=== PATIENT | female | born 1940 | race Caucasian/White ===

== ENCOUNTER 2018-07-29 14:43 | Emergency (ER) | payer OTHER ==
[~2018-07-29] VITALS: Ht 154.9 cm; Wt 47.6 kg
== END 2018-07-29 17:54 | disposition home or self-care (01) ==
LOC: ER 14:43
DX: N30.80 Other cystitis without hematuria (principal)

== ENCOUNTER 2024-06-14 21:45 | Emergency (ER) | payer OTHER ==
[~2024-06-14] VITALS: Ht 154.9 cm; Wt 40.8 kg
[2024-06-14] MEDS ORDERED: METFORMIN HCL500 M3 (22:03)
[2024-06-14] MEDS ORDERED: MESTINON60 M1 PO (22:03)
[2024-06-14] MEDS ORDERED: AREDS (22:04)
[2024-06-15] MEDS ORDERED: LEVALBUTEROL HCL 0.63 MG/3 ML SOLUTION IH STA (00:23)
[2024-06-15] MEDS ORDERED: LEVALBUTEROL HCL 0.63 MG/3 ML SOLUTION IH ONE (00:28)
[2024-06-15] MEDS ORDERED: 0.9 % SODIUM CHLORIDE 500 ML IV ONE (00:30)
[2024-06-15 01:47] LABS: CALCIUM 9.9 mg/dL (8.5-10.1); CREATININE SERUM 0.84 mg/dL (0.55-1.02); GFR 64.59; POTASSIUM 3.89 mEq/L (3.5-5.1)
== END 2024-06-15 03:29 ==
LOC: ER 21:46
PROVIDERS: General Practice
DX: R05.8 Other specified cough (principal); E86.0 Dehydration
CPT/HCPCS: 36415; 96365; 96366; 99282; J7042

== ENCOUNTER 2024-06-15 18:48 | Inpatient (IN) | payer OTHER ==
[~2024-06-15] VITALS: Ht 152.4 cm; Wt 44.5 kg
[~2024-06-15 18:48] MED LIST: AREDS; MESTINON60 M1 PO; METFORMIN HCL500 M3
--- NOTE | 2024-06-15 19:11 | NUR ---
PTE ALERTA Y ORIENTADA X3, LLEGA EN AMBULANCIA EN COMPANIA DE PARAMEDICOS, REFIEREN PTE PRESENTA DYSPHAGIA. PTE DEL DR.ORTIZ CORCORAN. SE ANDREI SV Y SE UBICA
[2024-06-15] MEDS ORDERED: ENALAPRILAT DIHYDRATE 1.25 MG/ML VIAL IV ONE (21:45)
[2024-06-15] MEDS ORDERED: SODIUM CHLORIDE 0.45 % 1,000 ML IV SCH (21:45)
[2024-06-15] MEDS ORDERED: LEVALBUTEROL HCL 1.25 MG/3 ML SOLUTION IH SCH (22:51)
[2024-06-15] MEDS ORDERED: DEXTROSE 50 % IN WATER 0.5 G/ML DISP.SYRIN IV PRN (23:00)
[2024-06-15] MEDS ORDERED: 0.9 % SODIUM CHLORIDE 1,000 ML IV SCH (23:00)
[2024-06-15] MEDS ORDERED: ACETAMINOPHEN 500 MG GEL..CAP PO PRN (23:00)
[2024-06-15] MEDS ORDERED: INSULIN LISPRO 1,000 UNIT/10 ML UNITS SUBCUTANEO PRN (23:00)
[2024-06-16] VITALS (9 sets, daily range): BP systolic 99–198; BP diastolic 54–84; O2SAT 97–100
[2024-06-16] MEDS ORDERED: PIPERACILLIN/TAZOBACTAM SODIUM 3.375 GM in DEXTROSE 5 % IN WATER 100 ML IV SCH
[2024-06-16] MEDS ORDERED: NEOSTIGMINE METHYLSULFATE 1 MG/ML IV SCH ×2 (02:00→17:00)
[2024-06-16 03:00] LABS: HEMATOCRIT 38.9 % (36.0-45.00); HEMOGLOBIN 12.9 g/dL (12.0-15.00); MEAN CELL VOLUME 84.3 fL (80.00-100.00); MEAN CORPUSCULAR HGB CONC 33.2 g/dl (32.0-36.0); PLATELET COUNT 172 K/uL (150-450); RED BLOOD COUNT 4.61 M/uL (4.00-6.00); RED CELL DISTRIBUTION WIDTH 13.5 % (11.5-14.5)
[2024-06-16 03:04] LABS: PARTIAL THROMBOPLASTIN TIME 27.4 SECONDS (22.0-34.0); PROTHROMBIN TIME 10.9 SECONDS (9.0-11.5)
[2024-06-16 03:05] LABS: PHOSPHOROUS 3.9 mg/dL (2.5-4.9)
[2024-06-16 03:07] LABS: C-REACTIVE PROTEIN 4.34 MG/DL (0.00-0.29)
[2024-06-16 03:09] LABS: ALBUMIN 3.8 gm/dL (3.4-5.0); BILIRUBIN TOTAL 0.58 mg/dL (0.3-1.2); CALCIUM 9.2 mg/dL (8.5-10.1); CREATININE SERUM 0.77 mg/dL (0.55-1.02); GFR 71.42; GLOBULINA 3.6 G/DL (2.4-3.5); POTASSIUM 3.95 mEq/L (3.5-5.1); TOTAL PROTEIN 7.4 gm/dL (6.4-8.2)
[2024-06-16] MEDS ORDERED: IMMUN GLOB G(IGG)/GLY/IGA OV50 20 G/200 ML VIAL IV SCH (09:00)
[2024-06-16] MEDS ORDERED: FAMOTIDINE/PF 20 MG in 0.9 % SODIUM CHLORIDE 8 ML IV PUSH SCH (09:00)
[2024-06-16 10:39] LABS: PH,URINE 5.5 (5.0-8.0); URINE APPEARANCE Clear; URINE BILIRRUBIN Negative (NEGATIVE); URINE BLOOD Trace; URINE COLOR Yellow; URINE LEUKOCYTE Negative; URINE NITRATE Negative; URINE PROTEIN 30 (NEGATIVE); URINE UROBILINOGEN 0.2 E.U./dl
[2024-06-16 10:56] LABS: URINE BACTERIA 14.6 uL (0.0-1933); URINE CAST 1.61 uL (0.0-1.40); URINE EPITHELIAL CELLS 5.6 uL (0.0-38.8); URINE RBC 3.5 uL (0.0-20.8); URINE WBC 13.5 uL (0.0-23.2)
[2024-06-16 11:20] LABS: URINE GLUCOSE 100 MG/DL (NEGATIVE); URINE KETONE 80 (NEGATIVE)
[2024-06-16] MEDS ORDERED: NITROGLYCERIN IN 5 % DEXTROSE 50 MG/250 ML BOTTLE IV ONE (14:30)
[2024-06-16] MEDS ORDERED: ENALAPRILAT DIHYDRATE 2.5 MG/2 ML VIAL IV PRN (16:45)
[2024-06-16] MEDS ORDERED: PROPOFOL 10,000 MCG/ML VIAL ONE (23:39)
[2024-06-16 23:50] LABS: ABG PO2 185.7 mmHg (80-100); ABG pCO2 50.6 mmHg (35-45); BICARBONATE 23.3 mmol/l (23-25); SaO2 99.4 %; Tco2 24.8 mmol/l
[2024-06-17] VITALS (15 sets, daily range): BP systolic 115–162; BP diastolic 47–78; O2SAT 99–100
[2024-06-17] MEDS ORDERED: NEOSTIGMINE METHYLSULFATE 1 MG/ML IV SCH (01:00)
[2024-06-17 01:15] LABS: ABG PH 7.446 (7.35-7.45); ABG PO2 218.4 mmHg (80-100); ABG pCO2 28.6 mmHg (35-45); BASE EXCESS -3.3 mmol/l; BICARBONATE 19.3 mmol/l (23-25); SaO2 99.8 %; Tco2 20.2 mmol/l
[2024-06-17] MEDS ORDERED: PROPOFOL 100 ML IV SCH (02:00)
[2024-06-17 04:44] LABS: PH,URINE 5.5 (5.0-8.0); URINE APPEARANCE Clear; URINE BILIRRUBIN Negative (NEGATIVE); URINE BLOOD Small; URINE COLOR Yellow; URINE GLUCOSE Negative (NEGATIVE); URINE KETONE 15 (NEGATIVE); URINE LEUKOCYTE Negative; URINE NITRATE Negative
[2024-06-17 04:47] LABS: URINE BACTERIA 30.5 uL (0.0-1933); URINE CAST 5.89 uL (0.0-1.40); URINE EPITHELIAL CELLS 27.5 uL (0.0-38.8); URINE RBC 6.6 uL (0.0-20.8); URINE WBC 11.3 uL (0.0-23.2)
[2024-06-17 05:16] LABS: URINE PROTEIN 100 (NEGATIVE)
[2024-06-17 06:29] LABS: ABG PH 7.396 (7.35-7.45); ABG PO2 313.7 mmHg (80-100); ABG pCO2 31.4 mmHg (35-45); BASE EXCESS -4.8 mmol/l; BICARBONATE 18.8 mmol/l (23-25); SaO2 99.9 %; Tco2 19.8 mmol/l
[2024-06-17 06:57] LABS: allen test SATISFACTORY; mode BPAP; o2 100 %; puncture site RADIAL LEFT
[2024-06-17 07:01] LABS: allen test SATISFACTORY; mode MECHANI VENTILATOR; o2 100 %; puncture site RADIAL LEFT
[2024-06-17 07:02] LABS: allen test SATISFACTORY; mode MECHANI VENTILATOR; o2 80 %; puncture site RADIAL LEFT
[2024-06-17] MEDS ORDERED: CHLORHEXIDINE GLUCONATE 15ML BRUSH KIT MM SCH (09:00)
[2024-06-17] MEDS ORDERED: POLYVINYL ALCOHOL 15 ML DROPS OP SCH ×2 (09:00→13:39)
[2024-06-17] MEDS ORDERED: PYRIDOSTIGMINE BROMIDE 60 MG TABLET PO SCH (14:00)
[2024-06-17 15:01] LABS: ABG PH 7.403 (7.35-7.45); ABG PO2 226.6 mmHg (80-100); ABG pCO2 27.5 mmHg (35-45); BASE EXCESS -6.2 mmol/l; BICARBONATE 16.8 mmol/l (23-25); SaO2 99.8 %; Tco2 17.6 mmol/l
[2024-06-17 15:02] LABS: allen test SATISFACTORY; mode MECHANI VENTILATOR; o2 50 %; puncture site RADIAL LEFT
[2024-06-17] MEDS ORDERED: CARBOXYMETHYLCELL/GLYCERIN/PF 1 EACH DROPERETTE OP SCH (17:00)
[2024-06-18] VITALS (13 sets, daily range): BP systolic 131–177; BP diastolic 50–75; O2SAT 100
[2024-06-18 13:13] LABS: ABG PH 7.405 (7.35-7.45); ABG PO2 197.8 mmHg (80-100); ABG pCO2 29.1 mmHg (35-45); BASE EXCESS -5.4 mmol/l; BICARBONATE 17.8 mmol/l (23-25); SaO2 99.7 %; Tco2 18.7 mmol/l
[2024-06-18 13:14] LABS: allen test SATISFACTORY; mode MECHANI VENTILATOR; o2 40 %; puncture site RADIAL RIGHT
[2024-06-18] MEDS ORDERED: PYRIDOSTIGMINE BROMIDE 60 MG TABLET PO SCH (14:00)
[2024-06-19] VITALS (16 sets, daily range): BP systolic 131–185; BP diastolic 64–85; O2SAT 100
[2024-06-19 06:43] LABS: HEMATOCRIT 32.3 % (36.0-45.00); MEAN CELL VOLUME 82.9 fL (80.00-100.00); MEAN CORPUSCULAR HEMOGLOBIN 28.4 pg (27.00-32.0); MEAN CORPUSCULAR HGB CONC 34.2 g/dl (32.0-36.0); RED BLOOD COUNT 3.89 M/uL (4.00-6.00); RED CELL DISTRIBUTION WIDTH 13.9 % (11.5-14.5)
[2024-06-19 06:48] LABS: PLATELET COUNT 116 K/uL (150-450)
[2024-06-19 07:18] LABS: ALBUMIN 2.2 gm/dL (3.4-5.0); BILIRUBIN TOTAL 0.34 mg/dL (0.3-1.2); CALCIUM 7.8 mg/dL (8.5-10.1); CREATININE SERUM 0.64 mg/dL (0.55-1.02); GFR 88.41; GLOBULINA 4.5 G/DL (2.4-3.5); TOTAL PROTEIN 6.7 gm/dL (6.4-8.2)
[2024-06-19 07:41] LABS: POTASSIUM 2.7 mEq/L (3.5-5.1)
[2024-06-19] MEDS ORDERED: ENALAPRILAT DIHYDRATE 1.25 MG/ML VIAL IV PRN ×2 (08:15→09:05)
[2024-06-19] MEDS ORDERED: IMMUN GLOB G(IGG)/GLY/IGA OV50 20 G/200 ML VIAL IV SCH (09:00)
[2024-06-19] MEDS ORDERED: NITROGLYCERIN IN 5 % DEXTROSE 250 ML IV SCH ×2 (09:30→10:15)
[2024-06-19] MEDS ORDERED: RACEPINEPHRINE HCL 0.5 ML AMPUL IH STA (09:53)
[2024-06-19] MEDS ORDERED: PROPOFOL 10,000 MCG/ML VIAL ONE (10:32)
[2024-06-19] MEDS ORDERED: PROPOFOL 100 ML IV SCH (11:15)
[2024-06-19] MEDS ORDERED: PROPOFOL 10,000 MCG/ML VIAL IV PUSH NR (11:30)
[2024-06-19] MEDS ORDERED: POTASSIUM CHLORIDE IN WATER 40 MEQ/100 ML PIGGYBAG IV SCH (12:00)
[2024-06-19 14:48] LABS: ABG pCO2 33.2 mmHg (35-45)
[2024-06-19 14:49] LABS: ABG PO2 526.5 mmHg (80-100); BASE EXCESS -7.5 mmol/l; BICARBONATE 17.2 mmol/l (23-25); Tco2 18.3 mmol/l; allen test SATISFACTORY; mode MECHANI VENTILATOR; o2 100 %; puncture site RADIAL RIGHT
[2024-06-19 14:50] LABS: ABG PH 7.326 (7.35-7.45); ABG PO2 197.8 mmHg (80-100); ABG pCO2 36.6 mmHg (35-45); BASE EXCESS -6.5 mmol/l; BICARBONATE 18.7 mmol/l (23-25); SaO2 99.6 %; Tco2 19.8 mmol/l
[2024-06-19 14:51] LABS: allen test SATISFACTORY; mode NASAL CANNULA; o2 36 %; puncture site RADIAL LEFT
[2024-06-20] VITALS (15 sets, daily range): BP systolic 109–176; BP diastolic 55–89; O2SAT 100
[2024-06-20] MEDS ORDERED: PYRIDOSTIGMINE BROMIDE 60 MG TABLET PO SCH (02:00)
[2024-06-20] MEDS ORDERED: LOSARTAN POTASSIUM 50 MG TABLET PO STA (07:45)
[2024-06-20] MEDS ORDERED: ISOSORBIDE MONONITRATE 30 MG TABLET PO SCH (09:00)
[2024-06-20 09:17] LABS: ABG PH 7.396 (7.35-7.45); ABG pCO2 28.3 mmHg (35-45); BASE EXCESS -6.3 mmol/l; Tco2 17.9 mmol/l
[2024-06-20 10:36] LABS: HEMATOCRIT 30.4 % (36.0-45.00); MEAN CELL VOLUME 85.1 fL (80.00-100.00); MEAN CORPUSCULAR HEMOGLOBIN 28.1 pg (27.00-32.0); MEAN CORPUSCULAR HGB CONC 33.1 g/dl (32.0-36.0); RED BLOOD COUNT 3.57 M/uL (4.00-6.00); RED CELL DISTRIBUTION WIDTH 13.8 % (11.5-14.5)
[2024-06-20 10:50] LABS: PLATELET COUNT 119 K/uL (150-450)
[2024-06-20 10:58] LABS: BILIRUBIN TOTAL 0.3 mg/dL (0.3-1.2); CALCIUM 7.9 mg/dL (8.5-10.1); CREATININE SERUM 0.66 mg/dL (0.55-1.02); GFR 85.32; GLOBULINA 4.7 G/DL (2.4-3.5); MAGNESIUM 1.9 mg/dL (1.8-2.4); PHOSPHOROUS 2.1 mg/dL (2.5-4.9); POTASSIUM 3.6 mEq/L (3.5-5.1); TOTAL PROTEIN 6.7 gm/dL (6.4-8.2)
[2024-06-20 11:33] LABS: ABG PO2 509.3 mmHg (80-100); o2 100 %; puncture site RADIAL RIGHT
[2024-06-20 11:34] LABS: allen test SATISFACTORY; mode MECHANI VENTILATOR
[2024-06-21] VITALS (8 sets, daily range): BP systolic 3–154; BP diastolic 66–85; O2SAT 100
[2024-06-21] MEDS ORDERED: LOSARTAN POTASSIUM 50 MG TABLET PO SCH (09:00)
[2024-06-21] MEDS ORDERED: FAMOTIDINE/PF 20 MG/2 ML VIAL ONE (11:46)
[2024-06-21] MEDS ORDERED: LEVALBUTEROL HCL 1.25 MG/3 ML SOLUTION IH SCH (12:00)
[2024-06-21 12:42] LABS: ABG PH 7.352 (7.35-7.45); ABG PO2 268.4 mmHg (80-100); ABG pCO2 38.7 mmHg (35-45); BASE EXCESS -4.1 mmol/l; SaO2 99.8 %; Tco2 22.2 mmol/l
[2024-06-21 12:43] LABS: o2 40 %
[2024-06-21 12:44] LABS: allen test SATISFACTORY; mode MECHANI VENTILATOR; puncture site RADIAL RIGHT
[2024-06-22] VITALS (9 sets, daily range): BP systolic 97–150; BP diastolic 53–93; O2SAT 100
[2024-06-22] MEDS ORDERED: [UNRECOGNIZED DRUG - OTHER] IM NR (09:00)
[2024-06-22] MEDS ORDERED: [UNRECOGNIZED DRUG - OTHER] IM NR (09:00)
[2024-06-22 11:09] LABS: ABG PH 7.352 (7.35-7.45); ABG PO2 126.5 mmHg (80-100); ABG pCO2 37.6 mmHg (35-45); BASE EXCESS -4.6 mmol/l; BICARBONATE 20.4 mmol/l (23-25); SaO2 98.6 %; Tco2 21.6 mmol/l
[2024-06-22 11:37] LABS: allen test SATISFACTORY; mode MECHANI VENTILATOR; puncture site RADIAL RIGHT
[2024-06-22 11:38] LABS: o2 35 %
[2024-06-23 05:47] VITALS: BP 141/60; O2SAT 100
[2024-06-23 07:37] LABS: CALCIUM 7.9 mg/dL (8.5-10.1); CREATININE SERUM 0.47 mg/dL (0.55-1.02); GFR 126.24
[2024-06-23 07:50] VITALS: BP 132/54; O2SAT 100
[2024-06-23 07:56] LABS: BASO % 0.4 % (0.1-1.2); EOS # 0.37 (0.04-0.54); EOS % 6.6 % (0.7-7.0); HEMATOCRIT 29.1 % (34.1-44.9); HEMOGLOBIN 9.9 g/dL (11.2-15.7); LYMPH # 0.42 (1.18-3.74); LYMPH % 7.5 % (19.3-53.1); MONO % 7.1 % (4.7-12.5); NEUT # 4.38 (1.56-6.13); NEUT % 78.2 % (34.0-71.1); PLATELET COUNT 153 K/uL (163-369); RED BLOOD COUNT 3.53 M/uL (3.93-5.22); RED CELL DISTRIBUTION WIDTH 13.6 % (11.6-14.4)
[2024-06-23] MEDS ORDERED: POTASSIUM CHLORIDE IN WATER 40 MEQ/100 ML PIGGYBAG IV SCH (08:00)
[2024-06-23 08:03] LABS: POTASSIUM 2.77 mEq/L (3.5-5.1)
[2024-06-23] MEDS ORDERED: POTASSIUM CHLORIDE 10 MEQ CAPSULE PO NR (09:00)
[2024-06-23 09:14] LABS: ABG PH 7.385 (7.35-7.45); ABG PO2 149.1 mmHg (80-100); ABG pCO2 38.9 mmHg (35-45); BICARBONATE 22.7 mmol/l (23-25); SaO2 99.2 %; Tco2 23.9 mmol/l
[2024-06-23 09:15] LABS: allen test SATISFACTORY; mode MECHANI VENTILATOR; o2 35 %; puncture site RADIAL RIGHT
[2024-06-23 12:00] VITALS: BP 158/82; O2SAT 100
[2024-06-23 14:24] LABS: ABG PH 7.375 (7.35-7.45); ABG PO2 174.1 mmHg (80-100); ABG pCO2 35.5 mmHg (35-45); BASE EXCESS -4.1 mmol/l; BICARBONATE 20.3 mmol/l (23-25); SaO2 99.5 %; Tco2 21.4 mmol/l
[2024-06-23 14:32] LABS: allen test SATISFACTORY; mode MECHANI VENTILATOR; o2 35 %; puncture site RADIAL RIGHT
[2024-06-23 15:24] VITALS: BP 155/87; O2SAT 100
[2024-06-23 20:10] VITALS: BP 153/73; O2SAT 100
[2024-06-23 23:37] VITALS: BP 152/72; O2SAT 100
[2024-06-24 04:00] VITALS: BP 149/61; O2SAT 100
[2024-06-24 07:22] VITALS: BP 147/65; O2SAT 100
[2024-06-24 08:14] LABS: CALCIUM 8.5 mg/dL (8.5-10.1); CREATININE SERUM 0.44 mg/dL (0.55-1.02); GFR 136.23; MAGNESIUM 1.7 mg/dL (1.8-2.4); POTASSIUM 4.22 mEq/L (3.5-5.1)
[2024-06-24] MEDS ORDERED: METOPROLOL SUCCINATE 25 MG TAB.SR.24H PO SCH (09:00)
[2024-06-24 09:08] LABS: ABG PH 7.411 (7.35-7.45); ABG pCO2 37.6 mmHg (35-45); BASE EXCESS -0.9 mmol/l; BICARBONATE 23.4 mmol/l (23-25); Tco2 24.5 mmol/l
[2024-06-24] MEDS ORDERED: MAGNESIUM SULFATE IN WATER 50 ML IV NR (10:00)
[2024-06-24 12:28] VITALS: BP 154/96; O2SAT 100
[2024-06-24 14:45] LABS: ABG PH 7.393 (7.35-7.45); ABG PO2 105.7 mmHg (80-100); ABG pCO2 37.4 mmHg (35-45); BASE EXCESS -2.1 mmol/l; BICARBONATE 22.3 mmol/l (23-25); Tco2 23.5 mmol/l
[2024-06-24 15:00] LABS: o2 35 %
[2024-06-24 15:01] LABS: allen test SATISFACTORY; mode MECHANI VENTILATOR; puncture site RADIAL RIGHT
[2024-06-24 15:02] LABS: allen test SATISFACTORY; mode MECHANI VENTILATOR; o2 35 %; puncture site RADIAL RIGHT
[2024-06-24 15:50] VITALS: BP 127/47; BP 139/59; O2SAT 100
[2024-06-24 20:07] VITALS: BP 153/91; O2SAT 100
[2024-06-24 23:29] VITALS: BP 133/95; O2SAT 100
[2024-06-25 04:00] VITALS: BP 153/71; O2SAT 100
[2024-06-25 07:37] VITALS: BP 158/67; O2SAT 100
[2024-06-25 12:00] VITALS: BP 111/56; O2SAT 97
[2024-06-25 15:38] VITALS: BP 128/54; O2SAT 100
[2024-06-25 20:00] VITALS: BP 130/58; O2SAT 100
[2024-06-25 23:29] VITALS: BP 137/60; O2SAT 98
[2024-06-26 04:00] VITALS: BP 130/57; O2SAT 99
[2024-06-26 07:33] VITALS: BP 128/58; O2SAT 100
[2024-06-26 08:50] LABS: ABG PH 7.383 (7.35-7.45); ABG PO2 80.7 mmHg (80-100); BASE EXCESS 0.2 mmol/l; BICARBONATE 25.6 mmol/l (23-25); SaO2 95.6 %; Tco2 26.9 mmol/l
[2024-06-26] MEDS ORDERED: LOSARTAN POTASSIUM 100 MG TABLET PO SCH (09:00)
[2024-06-26] MEDS ORDERED: METOPROLOL SUCCINATE 50 MG TAB.SR.24H PO SCH (09:00)
[2024-06-26 10:41] LABS: allen test SATISFACTORY; mode MECHANI VENTILATOR; o2 35 %; puncture site RADIAL LEFT
[2024-06-26 12:00] VITALS: BP 137/56; O2SAT 100
[2024-06-26 15:58] VITALS: BP 149/69; O2SAT 100
[2024-06-26 20:00] VITALS: BP 129/82; O2SAT 97
[2024-06-26 23:24] VITALS: BP 139/51; O2SAT 95
[2024-06-27] VITALS (8 sets, daily range): BP systolic 107–194; BP diastolic 41–86; O2SAT 96–100
[2024-06-27 08:50] LABS: ABG PH 7.434 (7.35-7.45); ABG PO2 97.9 mmHg (80-100); ABG pCO2 38.2 mmHg (35-45); SaO2 97.8 %; Tco2 26.2 mmol/l
[2024-06-27 08:59] LABS: allen test NO SATISFACTORY; mode MECHANI VENTILATOR; o2 40 %; puncture site RADIAL RIGHT
[2024-06-27 14:37] LABS: BASO % 0.2 % (0.1-1.2); HEMATOCRIT 32.4 % (34.1-44.9); HEMOGLOBIN 10.6 g/dL (11.2-15.7); LYMPH # 0.53 (1.18-3.74); LYMPH % 4.7 % (19.3-53.1); MONO # 0.78 (0.24-0.82); NEUT # 9.81 (1.56-6.13); NEUT % 87.7 % (34.0-71.1); PLATELET COUNT 306 K/uL (163-369); RED BLOOD COUNT 3.93 M/uL (3.93-5.22); RED CELL DISTRIBUTION WIDTH 12.9 % (11.6-14.4)
[2024-06-27 15:00] LABS: ALBUMIN 1.5 gm/dL (3.4-5.0); BILIRUBIN TOTAL 0.56 mg/dL (0.3-1.2); CALCIUM 8.2 mg/dL (8.5-10.1); CREATININE SERUM 0.41 mg/dL (0.55-1.02); GFR 147.79; GLOBULINA 4.3 G/DL (2.4-3.5); POTASSIUM 3.61 mEq/L (3.5-5.1); TOTAL PROTEIN 5.8 gm/dL (6.4-8.2)
[2024-06-27] MEDS ORDERED: CLEVIDIPINE BUTYRATE 100 ML IV SCH (16:00)
[2024-06-27] MEDS ORDERED: PROPOFOL 100 ML IV SCH (16:15)
[2024-06-28] VITALS (12 sets, daily range): BP systolic 105–158; BP diastolic 44–95; O2SAT 97–100
[2024-06-28 11:36] LABS: ABG PH 7.476 (7.35-7.45)
[2024-06-28 11:37] LABS: ABG pCO2 34.6 mmHg (35-45); BASE EXCESS 1.9 mmol/l; BICARBONATE 24.9 mmol/l (23-25); SaO2 97.2 %
[2024-06-28 11:40] LABS: allen test SATISFACTORY; mode MECHANI VENTILATOR; o2 40 %; puncture site RADIAL RIGHT
[2024-06-29] VITALS (23 sets, daily range): BP systolic 78–153; BP diastolic 38–61; O2SAT 97–100
[2024-06-29] MEDS ORDERED: 0.9 % SODIUM CHLORIDE 1,000 ML IV ONE ×2 (11:00→18:30)
[2024-06-29] MEDS ORDERED: NOREPINEPHRINE BITARTRATE 8 MG in DEXTROSE 5 % IN WATER 250 ML IV SCH (12:15)
[2024-06-29 12:56] LABS: LYMPH # 0.07 (1.18-3.74); LYMPH % 1.2 % (19.3-53.1); MEAN CORPUSCULAR HEMOGLOBIN 27.1 pg (25.6-32.2); MONO # 0.04 (0.24-0.82); MONO % 0.7 % (4.7-12.5); NEUT % 97.8 % (34.0-71.1); PLATELET COUNT 190 K/uL (163-369); RED CELL DISTRIBUTION WIDTH 12.9 % (11.6-14.4)
[2024-06-29 13:03] LABS: HEMATOCRIT 25.3 % (34.1-44.9); HEMOGLOBIN 8.4 g/dL (11.2-15.7)
[2024-06-29 13:51] LABS: ALBUMIN 1.2 gm/dL (3.4-5.0); BILIRUBIN TOTAL 0.71 mg/dL (0.3-1.2); CREATININE SERUM 0.59 mg/dL (0.55-1.02); GFR 97.11; GLOBULINA 3.2 G/DL (2.4-3.5); TOTAL PROTEIN 4.4 gm/dL (6.4-8.2)
[2024-06-29 13:55] LABS: POTASSIUM 2.84 mEq/L (3.5-5.1)
[2024-06-29] MEDS ORDERED: MEROPENEM 500 MG/VIAL VIAL IV SCH (15:15)
[2024-06-29 16:38] LABS: INR 1.08; PARTIAL THROMBOPLASTIN TIME 28.4 SECONDS (22.0-34.0); PROTHROMBIN TIME 11.7 SECONDS (9.0-11.5)
[2024-06-29] MEDS ORDERED: POTASSIUM CHLORIDE IN WATER 40 MEQ/100 ML PIGGYBAG IV SCH (17:00)
[2024-06-30] VITALS (11 sets, daily range): BP systolic 104–157; BP diastolic 45–99; O2SAT 100
[2024-06-30 08:42] LABS: ABG PH 7.417 (7.35-7.45); ABG PO2 313.5 mmHg (80-100); ABG pCO2 42.6 mmHg (35-45); BICARBONATE 26.8 mmol/l (23-25); SaO2 99.9 %; Tco2 28.1 mmol/l
[2024-06-30 08:48] LABS: allen test SATISFACTORY; mode MECHANI VENTILATOR; o2 100 %; puncture site RADIAL LEFT
[2024-07-01] VITALS (11 sets, daily range): BP systolic 111–137; BP diastolic 44–56; O2SAT 100
[2024-07-01 07:26] LABS: CALCIUM 7.6 mg/dL (8.5-10.1); CREATININE SERUM 0.49 mg/dL (0.55-1.02); GFR 120.32; POTASSIUM 3.32 mEq/L (3.5-5.1)
[2024-07-01 07:33] LABS: BASO % 0.2 % (0.1-1.2); EOS # 0.01 (0.04-0.54); EOS % 0.1 % (0.7-7.0); LYMPH # 0.46 (1.18-3.74); LYMPH % 3.4 % (19.3-53.1); MEAN CORPUSCULAR HEMOGLOBIN 27.8 pg (25.6-32.2); MONO # 0.59 (0.24-0.82); MONO % 4.4 % (4.7-12.5); NEUT # 12.15 (1.56-6.13); NEUT % 90.7 % (34.0-71.1); PLATELET COUNT 179 K/uL (163-369); RED BLOOD COUNT 2.99 M/uL (3.93-5.22); RED CELL DISTRIBUTION WIDTH 13.5 % (11.6-14.4)
[2024-07-01 07:54] LABS: HEMOGLOBIN 8.3 g/dL (11.2-15.7)
[2024-07-01 09:22] LABS: ABG PH 7.435 (7.35-7.45); ABG PO2 390.5 mmHg (80-100); ABG pCO2 38.9 mmHg (35-45); BASE EXCESS 1.4 mmol/l; BICARBONATE 25.5 mmol/l (23-25); Tco2 26.7 mmol/l
[2024-07-01 12:44] LABS: allen test SATISFACTORY; mode MECHANI VENTILATOR; o2 100 %; puncture site RADIAL RIGHT
[2024-07-01 12:54] LABS: ABG PH 7.392 (7.35-7.45); ABG PO2 127.9 mmHg (80-100); ABG pCO2 44.2 mmHg (35-45); BICARBONATE 26.3 mmol/l (23-25); SaO2 98.8 %; Tco2 27.7 mmol/l
[2024-07-01 15:09] LABS: allen test SATISFACTORY; mode MECHANI VENTILATOR; o2 40 %; puncture site RADIAL RIGHT
[2024-07-02] VITALS (10 sets, daily range): BP systolic 118–155; BP diastolic 43–96; O2SAT 99–100
[2024-07-02] MEDS ORDERED: FUROsemide 20 MG/2 ML VIAL IV NR (11:00)
[2024-07-02] MEDS ORDERED: POTASSIUM CHLORIDE IN WATER 100 ML IV NR (11:00)
[2024-07-02] MEDS ORDERED: MEROPENEM 500 MG/VIAL VIAL IV ONE ×2 (16:50→23:49)
[2024-07-02] MEDS ORDERED: MEROPENEM 500 MG/VIAL VIAL IV SCH (18:00)
[2024-07-02 19:54] LABS: ABG PH 7.419 (7.35-7.45); ABG PO2 141.2 mmHg (80-100); BASE EXCESS 4.4 mmol/l; BICARBONATE 29.8 mmol/l (23-25); SaO2 99.2 %; Tco2 31.2 mmol/l; allen test SATISFACTORY; mode SPONT; o2 40 %; puncture site RADIAL LEFT
[2024-07-03 04:10] VITALS: BP 124/57; O2SAT 100
[2024-07-03] MEDS ORDERED: MEROPENEM 500 MG/VIAL VIAL IV ONE ×3 (05:21→23:37)
[2024-07-03 07:25] VITALS: BP 121/71; O2SAT 100
[2024-07-03 07:41] LABS: CALCIUM 7.1 mg/dL (8.5-10.1); GFR 274.18; POTASSIUM 3.12 mEq/L (3.5-5.1)
[2024-07-03 07:44] LABS: CREATININE SERUM 0.24 mg/dL (0.55-1.02)
[2024-07-03] MEDS ORDERED: FUROsemide 20 MG/2 ML VIAL IV SCH (09:00)
[2024-07-03 09:48] LABS: ABG PH 7.541 (7.35-7.45); ABG pCO2 33.6 mmHg (35-45)
[2024-07-03 09:49] LABS: ABG PO2 121.6 mmHg (80-100); BASE EXCESS 5.9 mmol/l; BICARBONATE 28.1 mmol/l (23-25); SaO2 99.2 %; Tco2 2932 mmol/l
[2024-07-03 09:50] LABS: allen test SATISFACTORY; mode MECHANI VENTILATOR; o2 40 %; puncture site RADIAL RIGHT
[2024-07-03 12:07] VITALS: BP 164/50; O2SAT 93
[2024-07-03 15:56] VITALS: BP 141/56; O2SAT 100
[2024-07-03 20:00] VITALS: BP 139/55; O2SAT 100
[2024-07-03 23:33] VITALS: BP 129/88; BP 184/84; O2SAT 100
[2024-07-04 04:13] VITALS: BP 159/99; O2SAT 100
[2024-07-04 07:34] VITALS: BP 144/44; O2SAT 100
[2024-07-04 09:16] LABS: ABG PH 7.491 (7.35-7.45); ABG PO2 86.3 mmHg (80-100); ABG pCO2 43.3 mmHg (35-45); BASE EXCESS 8.1 mmol/l; BICARBONATE 32.4 mmol/l (23-25); SaO2 97.5 %; Tco2 33.7 mmol/l
[2024-07-04 09:32] LABS: allen test NO SATISFACTORY; mode MECHANI VENTILATOR; o2 40 %; puncture site RADIAL RIGHT
[2024-07-04] MEDS ORDERED: POTASSIUM CHLORIDE 20MEQ/100ML H2O PB IV NR (11:10)
[2024-07-04] MEDS ORDERED: MEROPENEM 500 MG/VIAL VIAL IV ONE ×2 (11:49→22:47)
[2024-07-04 12:00] VITALS: BP 144/46; O2SAT 100
[2024-07-04 13:15] LABS: ABG PO2 81.5 mmHg (80-100); ABG pCO2 55.1 mmHg (35-45); BASE EXCESS 7.6 mmol/l; BICARBONATE 34.2 mmol/l (23-25); SaO2 96.3 %; Tco2 35.8 mmol/l
[2024-07-04 13:24] LABS: allen test NO SATISFACTORY; mode MECHANI VENTILATOR; o2 40 %; puncture site RADIAL LEFT
[2024-07-04 16:07] VITALS: BP 121/42; O2SAT 100
[2024-07-04 20:00] VITALS: BP 141/55; O2SAT 100
[2024-07-04 23:12] VITALS: BP 149/65; O2SAT 97
[2024-07-05] VITALS (7 sets, daily range): BP systolic 129–151; BP diastolic 42–57; O2SAT 100
[2024-07-05 05:44] LABS: ABG PO2 183.7 mmHg (80-100); ABG pCO2 33.8 mmHg (35-45); BASE EXCESS 8.2 mmol/l; BICARBONATE 30.3 mmol/l (23-25); SaO2 99.8 %; Tco2 31.3 mmol/l
[2024-07-05 06:05] LABS: allen test SATISFACTORY; mode MECHANI VENTILATOR; o2 40 %; puncture site RADIAL RIGHT
[2024-07-05 06:54] LABS: BASO % 0.1 % (0.1-1.2); EOS # 0.07 (0.04-0.54); EOS % 0.9 % (0.7-7.0); LYMPH # 0.78 (1.18-3.74); LYMPH % 9.9 % (19.3-53.1); MEAN CORPUSCULAR HEMOGLOBIN 26.5 pg (25.6-32.2); MONO # 0.63 (0.24-0.82); NEUT # 6.33 (1.56-6.13); NEUT % 80.5 % (34.0-71.1); PLATELET COUNT 243 K/uL (163-369); RED BLOOD COUNT 3.13 M/uL (3.93-5.22); RED CELL DISTRIBUTION WIDTH 12.7 % (11.6-14.4)
[2024-07-05 07:21] LABS: HEMATOCRIT 25.1 % (34.1-44.9); HEMOGLOBIN 8.3 g/dL (11.2-15.7)
[2024-07-05 07:47] LABS: ALBUMIN 1.5 gm/dL (3.4-5.0); BILIRUBIN TOTAL 0.47 mg/dL (0.3-1.2); CALCIUM 7.8 mg/dL (8.5-10.1); CREATININE SERUM 0.35 mg/dL (0.55-1.02); GFR 177.4; GLOBULINA 4.1 G/DL (2.4-3.5); POTASSIUM 3.51 mEq/L (3.5-5.1); TOTAL PROTEIN 5.6 gm/dL (6.4-8.2)
[2024-07-05] MEDS ORDERED: MEROPENEM 500 MG/VIAL VIAL IV ONE ×2 (16:17→22:46)
[2024-07-06 01:30] LABS: BASO % 0.2 % (0.1-1.2); EOS # 0.16 (0.04-0.54); EOS % 1.9 % (0.7-7.0); HEMATOCRIT 33.8 % (34.1-44.9); HEMOGLOBIN 11.3 g/dL (11.2-15.7); LYMPH # 0.72 (1.18-3.74); LYMPH % 8.5 % (19.3-53.1); MEAN CORPUSCULAR HEMOGLOBIN 27.8 pg (25.6-32.2); MONO # 0.57 (0.24-0.82); MONO % 6.7 % (4.7-12.5); NEUT # 6.95 (1.56-6.13); NEUT % 82.2 % (34.0-71.1); PLATELET COUNT 253 K/uL (163-369); RED BLOOD COUNT 4.07 M/uL (3.93-5.22); RED CELL DISTRIBUTION WIDTH 13.2 % (11.6-14.4)
[2024-07-06 04:04] VITALS: BP 99/85; O2SAT 100
[2024-07-06 07:39] VITALS: BP 157/60; O2SAT 100
[2024-07-06 09:42] LABS: ABG PO2 119.8 mmHg (80-100); ABG pCO2 37.6 mmHg (35-45); BASE EXCESS 6.1 mmol/l; BICARBONATE 29.3 mmol/l (23-25); SaO2 99.1 %; Tco2 30.5 mmol/l
[2024-07-06 10:36] LABS: allen test NO SATISFACTORY; mode MECHANI VENTILATOR; o2 40 %; puncture site RADIAL RIGHT
[2024-07-06 12:00] VITALS: BP 163/100; O2SAT 100
[2024-07-06 16:00] VITALS: BP 161/54; O2SAT 100
[2024-07-06] MEDS ORDERED: MEROPENEM 500 MG/VIAL VIAL IV ONE (16:57)
[2024-07-06 21:20] VITALS: BP 146/56; O2SAT 100
[2024-07-07] VITALS (7 sets, daily range): BP systolic 98–148; BP diastolic 45–69; O2SAT 99–100
[2024-07-07 08:29] LABS: ABG PH 7.514 (7.35-7.45); ABG PO2 136.1 mmHg (80-100); ABG pCO2 38.5 mmHg (35-45); BASE EXCESS 6.9 mmol/l; BICARBONATE 30.3 mmol/l (23-25); SaO2 99.4 %; Tco2 31.5 mmol/l
[2024-07-07 09:59] LABS: allen test SATISFACTORY; mode MECHANI VENTILATOR; o2 40 %; puncture site RADIAL RIGHT
[2024-07-07] MEDS ORDERED: MEROPENEM 500 MG/VIAL VIAL IV ONE ×2 (11:10→17:01)
[2024-07-08 04:42] VITALS: BP 126/46; O2SAT 100
[2024-07-08 07:43] VITALS: BP 121/47; O2SAT 68
[2024-07-08] MEDS ORDERED: MEROPENEM 500 MG/VIAL VIAL IV ONE ×2 (08:39→16:23)
[2024-07-08 09:12] LABS: ABG PO2 101.4 mmHg (80-100); ABG pCO2 43.8 mmHg (35-45); BASE EXCESS 7.5 mmol/l; BICARBONATE 31.9 mmol/l (23-25); SaO2 98.4 %; Tco2 33.3 mmol/l
[2024-07-08 09:35] LABS: allen test SATISFACTORY; o2 40 %; puncture site RADIAL LEFT
[2024-07-08 09:36] LABS: mode MECHANI VENTILATOR
[2024-07-08 12:00] VITALS: BP 129/52; O2SAT 100
[2024-07-08 15:36] VITALS: BP 119/46; O2SAT 100
[2024-07-08 20:00] VITALS: BP 128/57; O2SAT 100
[2024-07-08 23:26] VITALS: BP 126/88; O2SAT 96
[2024-07-09 04:31] VITALS: BP 164/58; O2SAT 100
[2024-07-09] MEDS ORDERED: MEROPENEM 500 MG/VIAL VIAL IV ONE ×3 (06:04→15:53)
[2024-07-09 08:43] LABS: BASO % 0.2 % (0.1-1.2); EOS # 0.04 (0.04-0.54); EOS % 0.4 % (0.7-7.0); HEMOGLOBIN 10.6 g/dL (11.2-15.7); LYMPH # 0.73 (1.18-3.74); LYMPH % 6.5 % (19.3-53.1); MEAN CORPUSCULAR HEMOGLOBIN 27.2 pg (25.6-32.2); MONO # 0.45 (0.24-0.82); NEUT # 9.93 (1.56-6.13); NEUT % 88.5 % (34.0-71.1); PLATELET COUNT 298 K/uL (163-369); RED CELL DISTRIBUTION WIDTH 13.1 % (11.6-14.4)
[2024-07-09 09:19] LABS: ALBUMIN 1.9 gm/dL (3.4-5.0); BILIRUBIN TOTAL 0.51 mg/dL (0.3-1.2); CALCIUM 8.2 mg/dL (8.5-10.1); CREATININE SERUM 0.38 mg/dL (0.55-1.02); GFR 161.34; GLOBULINA 4.4 G/DL (2.4-3.5); POTASSIUM 3.54 mEq/L (3.5-5.1); TOTAL PROTEIN 6.3 gm/dL (6.4-8.2)
[2024-07-09 09:54] LABS: ABG PH 7.509 (7.35-7.45); ABG PO2 121.2 mmHg (80-100); ABG pCO2 39.2 mmHg (35-45); BICARBONATE 30.5 mmol/l (23-25); SaO2 99.1 %; Tco2 31.7 mmol/l
[2024-07-09 09:55] LABS: allen test SATISFACTORY; mode MECHANI VENTILATOR; o2 40 %; puncture site RADIAL LEFT
[2024-07-09 11:59] VITALS: BP 119/46; O2SAT 100
[2024-07-09 15:08] VITALS: BP 119/46; O2SAT 100
[2024-07-09 20:09] VITALS: BP 136/64; O2SAT 100
[2024-07-09 23:45] VITALS: BP 136/64; O2SAT 100
[2024-07-10 05:52] VITALS: BP 134/51; O2SAT 100
[2024-07-10] MEDS ORDERED: INSULIN LISPRO 1,000 UNIT/10 ML UNITS SUBCUTANEO PRN ×2 (06:45→08:00)
[2024-07-10 07:30] VITALS: BP 162/63; O2SAT 100
[2024-07-10] MEDS ORDERED: DEXTROSE 50 % IN WATER 0.5 G/ML VIAL IV PRN (08:00)
[2024-07-10 09:09] LABS: ABG PH 7.508 (7.35-7.45); ABG PO2 126.7 mmHg (80-100); ABG pCO2 37.2 mmHg (35-45); BASE EXCESS 5.7 mmol/l; BICARBONATE 28.9 mmol/l (23-25); SaO2 99.2 %; allen test SATISFACTORY; mode MECHANI VENTILATOR; o2 40 %; puncture site RADIAL LEFT
[2024-07-10 13:17] VITALS: BP 141/46; O2SAT 100
[2024-07-10 15:18] VITALS: BP 106/45; O2SAT 100
[2024-07-10 20:00] VITALS: BP 125/47; O2SAT 98
[2024-07-10] MEDS ORDERED: 0.9 % SODIUM CHLORIDE 10 ML VIAL IJ ONE (23:28)
[2024-07-11] VITALS (7 sets, daily range): BP systolic 113–153; BP diastolic 43–82; O2SAT 95–100
[2024-07-11] MEDS ORDERED: PROPOFOL 10,000 MCG/ML VIAL IV PUSH ONE (03:30)
[2024-07-11 07:00] LABS: BASO % 0.2 % (0.1-1.2); EOS # 0.02 (0.04-0.54); EOS % 0.1 % (0.7-7.0); HEMATOCRIT 32.5 % (34.1-44.9); HEMOGLOBIN 10.4 g/dL (11.2-15.7); LYMPH # 0.76 (1.18-3.74); LYMPH % 5.5 % (19.3-53.1); MONO # 0.74 (0.24-0.82); MONO % 5.4 % (4.7-12.5); NEUT % 88.4 % (34.0-71.1); PLATELET COUNT 312 K/uL (163-369); RED BLOOD COUNT 3.85 M/uL (3.93-5.22); RED CELL DISTRIBUTION WIDTH 13.3 % (11.6-14.4)
[2024-07-11 08:06] LABS: ALBUMIN 1.9 gm/dL (3.4-5.0); BILIRUBIN TOTAL 0.43 mg/dL (0.3-1.2); CALCIUM 8.7 mg/dL (8.5-10.1); CREATININE SERUM 0.53 mg/dL (0.55-1.02); GFR 109.9; GLOBULINA 4.6 G/DL (2.4-3.5); POTASSIUM 3.86 mEq/L (3.5-5.1); TOTAL PROTEIN 6.5 gm/dL (6.4-8.2)
[2024-07-11 08:39] LABS: ABG PH 7.448 (7.35-7.45); ABG pCO2 48.5 mmHg (35-45); BASE EXCESS 7.5 mmol/l; BICARBONATE 32.8 mmol/l (23-25); SaO2 96.5 %; Tco2 34.3 mmol/l
[2024-07-11 08:48] LABS: allen test NO SATISFACTORY; mode MECHANI VENTILATOR; o2 40 %; puncture site RADIAL RIGHT
[2024-07-12 04:00] VITALS: BP 149/56; O2SAT 100
[2024-07-12 07:04] VITALS: BP 152/64; O2SAT 100
[2024-07-12 09:01] LABS: ABG PH 7.491 (7.35-7.45); ABG PO2 99.6 mmHg (80-100); ABG pCO2 44.6 mmHg (35-45); BASE EXCESS 8.8 mmol/l; BICARBONATE 33.3 mmol/l (23-25); SaO2 98.4 %; Tco2 34.7 mmol/l
[2024-07-12 10:17] LABS: allen test SATISFACTORY; mode MECHANI VENTILATOR; o2 40 %; puncture site RADIAL RIGHT
[2024-07-12 12:00] VITALS: BP 168/59; O2SAT 100
[2024-07-12] MEDS ORDERED: INSULIN NPH HUMAN ISOPHANE 1,000 UNITS/10 ML UNITS SUBCUTANEO SCH (13:00)
[2024-07-12 15:40] VITALS: BP 137/74; O2SAT 100
[2024-07-12 20:00] VITALS: BP 138/67; O2SAT 100
[2024-07-12 23:35] VITALS: BP 140/58; O2SAT 100
[2024-07-13 04:11] VITALS: BP 142/47; O2SAT 100
[2024-07-13 07:49] VITALS: BP 129/44; O2SAT 100
[2024-07-13 08:42] LABS: ABG PO2 148.3 mmHg (80-100); ABG pCO2 50.2 mmHg (35-45); BASE EXCESS 8.5 mmol/l; BICARBONATE 34.1 mmol/l (23-25); SaO2 99.4 %; Tco2 35.7 mmol/l; o2 40 %
[2024-07-13 08:43] LABS: allen test NO SATISFACTORY; mode MECHANI VENTILATOR; puncture site RADIAL LEFT
[2024-07-13] MEDS ORDERED: FAMOTIDINE/PF 20 MG/2 ML VIAL ONE (09:28)
[2024-07-13 09:37] LABS: BASO % 0.5 % (0.1-1.2); EOS # 0.12 (0.04-0.54); EOS % 2.2 % (0.7-7.0); HEMATOCRIT 33.7 % (34.1-44.9); HEMOGLOBIN 10.6 g/dL (11.2-15.7); LYMPH # 0.82 (1.18-3.74); LYMPH % 14.7 % (19.3-53.1); MEAN CORPUSCULAR HEMOGLOBIN 26.8 pg (25.6-32.2); NEUT % 73.4 % (34.0-71.1); PLATELET COUNT 285 K/uL (163-369); RED BLOOD COUNT 3.96 M/uL (3.93-5.22); RED CELL DISTRIBUTION WIDTH 13.1 % (11.6-14.4)
[2024-07-13 10:08] LABS: CALCIUM 8.8 mg/dL (8.5-10.1); CREATININE SERUM 0.43 mg/dL (0.55-1.02); GFR 139.89; POTASSIUM 3.45 mEq/L (3.5-5.1)
[2024-07-13 12:00] VITALS: O2SAT 100
[2024-07-13 15:38] VITALS: BP 127/50; O2SAT 100
[2024-07-13 20:00] VITALS: BP 127/57; O2SAT 100
[2024-07-13 23:31] VITALS: BP 131/54; O2SAT 100
[2024-07-14 04:08] VITALS: BP 145/67; O2SAT 100
[2024-07-14 07:29] VITALS: BP 125/53; O2SAT 100
[2024-07-14 09:14] LABS: ABG PH 7.459 (7.35-7.45); ABG PO2 160.8 mmHg (80-100); ABG pCO2 46.8 mmHg (35-45); BASE EXCESS 7.5 mmol/l; BICARBONATE 32.5 mmol/l (23-25); SaO2 99.5 %; Tco2 33.9 mmol/l
[2024-07-14 11:41] LABS: allen test SATISFACTORY; mode MECHANI VENTILATOR; o2 40 %; puncture site RADIAL RIGHT
[2024-07-14 12:00] VITALS: BP 137/57; O2SAT 100
[2024-07-14 15:09] VITALS: BP 143/54; O2SAT 100
[2024-07-14 20:00] VITALS: BP 159/66; O2SAT 99
[2024-07-14 23:58] VITALS: BP 162/72; O2SAT 98
[2024-07-15] VITALS (8 sets, daily range): BP systolic 96–153; BP diastolic 49–98; O2SAT 97–100
[2024-07-15 07:33] LABS: CALCIUM 9.1 mg/dL (8.5-10.1); CREATININE SERUM 0.44 mg/dL (0.55-1.02); GFR 136.23; POTASSIUM 3.09 mEq/L (3.5-5.1)
[2024-07-15 07:49] LABS: INR 1.02; PARTIAL THROMBOPLASTIN TIME 27.7 SECONDS (22.0-34.0); PROTHROMBIN TIME 11.1 SECONDS (9.0-11.5)
[2024-07-15 09:18] LABS: ABG PH 7.483 (7.35-7.45); ABG pCO2 43.7 mmHg (35-45); BASE EXCESS 7.7 mmol/l; BICARBONATE 32.1 mmol/l (23-25); SaO2 99.4 %; Tco2 33.4 mmol/l
[2024-07-15 09:49] LABS: BASO % 0.5 % (0.1-1.2); EOS # 0.12 (0.04-0.54); EOS % 1.9 % (0.7-7.0); HEMATOCRIT 33.7 % (34.1-44.9); HEMOGLOBIN 10.8 g/dL (11.2-15.7); LYMPH # 0.66 (1.18-3.74); LYMPH % 10.2 % (19.3-53.1); MEAN CORPUSCULAR HEMOGLOBIN 27.3 pg (25.6-32.2); MONO # 0.52 (0.24-0.82); NEUT # 5.12 (1.56-6.13); NEUT % 79.2 % (34.0-71.1); PLATELET COUNT 313 K/uL (163-369); RED BLOOD COUNT 3.95 M/uL (3.93-5.22)
[2024-07-15 10:14] LABS: allen test SATISFACTORY; mode MECHANI VENTILATOR; o2 40 %; puncture site RADIAL RIGHT
[2024-07-15] MEDS ORDERED: POTASSIUM CHLORIDE/D5-0.45NACL 1,000 ML IV ONE (10:45)
[2024-07-15] MEDS ORDERED: POTASSIUM CHLORIDE IN WATER 40 MEQ/100 ML PIGGYBAG IV NR (10:45)
[2024-07-16 04:28] VITALS: BP 135/49; O2SAT 98
[2024-07-16 07:39] VITALS: BP 156/57; O2SAT 97
[2024-07-16 11:55] LABS: CREATININE SERUM 0.44 mg/dL (0.55-1.02); GFR 136.23; POTASSIUM 3.91 mEq/L (3.5-5.1)
[2024-07-16] MEDS ORDERED: LIDOCAINE HCL 1%/EPINEPHRINE 10 ML VIAL IJ ONE (12:45)
[2024-07-16 13:57] VITALS: BP 166/78; O2SAT 100
[2024-07-16 15:53] VITALS: BP 132/52; O2SAT 100
[2024-07-16 17:14] LABS: ABG PO2 138.2 mmHg (80-100); ABG pCO2 43.3 mmHg (35-45); BICARBONATE 32.3 mmol/l (23-25); SaO2 99.4 %; Tco2 33.6 mmol/l; allen test SATISFACTORY; mode MECHANI VENTILATOR; o2 40 %; puncture site RADIAL LEFT
[2024-07-16 20:00] VITALS: BP 121/51; O2SAT 100
[2024-07-16] MEDS ORDERED: PYRIDOSTIGMINE BROMIDE 60 MG TABLET PO SCH (21:00)
[2024-07-16 23:39] VITALS: BP 139/57; O2SAT 100
[2024-07-17 06:59] VITALS: BP 153/58; O2SAT 99
[2024-07-17 09:22] LABS: ABG PH 7.468 (7.35-7.45); ABG PO2 186.1 mmHg (80-100); ABG pCO2 38.6 mmHg (35-45); BASE EXCESS 3.6 mmol/l; BICARBONATE 27.4 mmol/l (23-25); SaO2 99.7 %; Tco2 28.5 mmol/l
[2024-07-17 12:00] VITALS: BP 153/75; O2SAT 100
[2024-07-17 15:27] LABS: allen test SATISFACTORY; mode MECHANI VENTILATOR; o2 40 %; puncture site RADIAL RIGHT
[2024-07-17 15:47] VITALS: BP 147/63; O2SAT 99
[2024-07-17 20:00] VITALS: BP 148/63; O2SAT 100
[2024-07-17 23:38] VITALS: BP 157/81; O2SAT 98
[2024-07-18] VITALS (7 sets, daily range): BP systolic 94–141; BP diastolic 46–81; O2SAT 100
[2024-07-18 09:09] LABS: ABG PH 7.429 (7.35-7.45); ABG PO2 127.4 mmHg (80-100); ABG pCO2 39.5 mmHg (35-45); BASE EXCESS 1.3 mmol/l; BICARBONATE 25.6 mmol/l (23-25); Tco2 26.8 mmol/l
[2024-07-18] MEDS ORDERED: HALOPERIDOL LACTATE 5 MG/ML AMPUL IV PRN (10:30)
[2024-07-18 11:39] LABS: allen test SATISFACTORY; mode MECHANI VENTILATOR; o2 35 %; puncture site RADIAL RIGHT
[2024-07-18 15:42] LABS: BASO % 0.1 % (0.1-1.2); EOS # 0.02 (0.04-0.54); EOS % 0.3 % (0.7-7.0); HEMATOCRIT 29.6 % (34.1-44.9); HEMOGLOBIN 9.5 g/dL (11.2-15.7); LYMPH # 0.45 (1.18-3.74); LYMPH % 5.7 % (19.3-53.1); MEAN CORPUSCULAR HEMOGLOBIN 26.9 pg (25.6-32.2); MONO # 0.61 (0.24-0.82); MONO % 7.8 % (4.7-12.5); NEUT # 6.73 (1.56-6.13); NEUT % 85.7 % (34.0-71.1); PLATELET COUNT 261 K/uL (163-369); RED BLOOD COUNT 3.53 M/uL (3.93-5.22)
[2024-07-18 16:17] LABS: INR 1.08; PARTIAL THROMBOPLASTIN TIME 30.9 SECONDS (22.0-34.0); PROTHROMBIN TIME 11.7 SECONDS (9.0-11.5)
[2024-07-18 16:20] LABS: ALBUMIN 1.8 gm/dL (3.4-5.0); BILIRUBIN TOTAL 0.57 mg/dL (0.3-1.2); CREATININE SERUM 0.52 mg/dL (0.55-1.02); GFR 112.34; GLOBULINA 4.5 G/DL (2.4-3.5); MAGNESIUM 1.9 mg/dL (1.8-2.4); PHOSPHOROUS 2.9 mg/dL (2.5-4.9); POTASSIUM 3.55 mEq/L (3.5-5.1); TOTAL PROTEIN 6.3 gm/dL (6.4-8.2)
[2024-07-18] MEDS ORDERED: MYCOPHENOLATE250 MG (20:38)
[2024-07-18] MEDS ORDERED: METFORMIN HCL500 M1 (20:39)
[2024-07-18] MEDS ORDERED: MESTINON60 MG (20:39)
[2024-07-19] VITALS (8 sets, daily range): BP systolic 134–164; BP diastolic 52–80; O2SAT 98–100
[2024-07-19 06:53] LABS: ABG PH 7.526 (7.35-7.45); ABG PO2 148.8 mmHg (80-100); SaO2 99.5 %; Tco2 31.1 mmol/l; allen test SATISFACTORY; mode MECHANI VENTILATOR; o2 35 %; puncture site RADIAL RIGHT
[2024-07-19 06:56] LABS: BASO % 0.3 % (0.1-1.2); EOS % 1.4 % (0.7-7.0); HEMATOCRIT 28.6 % (34.1-44.9); HEMOGLOBIN 9.2 g/dL (11.2-15.7); LYMPH # 0.73 (1.18-3.74); LYMPH % 10.6 % (19.3-53.1); MONO # 0.61 (0.24-0.82); MONO % 8.8 % (4.7-12.5); NEUT # 5.42 (1.56-6.13); NEUT % 78.6 % (34.0-71.1); PLATELET COUNT 256 K/uL (163-369); RED BLOOD COUNT 3.41 M/uL (3.93-5.22); RED CELL DISTRIBUTION WIDTH 12.8 % (11.6-14.4)
[2024-07-19 07:09] LABS: INR 1.01; PARTIAL THROMBOPLASTIN TIME 29.9 SECONDS (22.0-34.0)
[2024-07-19 07:19] LABS: ALBUMIN 1.8 gm/dL (3.4-5.0); BILIRUBIN TOTAL 0.62 mg/dL (0.3-1.2); CALCIUM 9.2 mg/dL (8.5-10.1); CREATININE SERUM 0.42 mg/dL (0.55-1.02); GFR 143.74; GLOBULINA 4.5 G/DL (2.4-3.5); PHOSPHOROUS 2.2 mg/dL (2.5-4.9); POTASSIUM 3.53 mEq/L (3.5-5.1); TOTAL PROTEIN 6.3 gm/dL (6.4-8.2)
[2024-07-19] MEDS ORDERED: EPOETIN ALFA-EPBX 10,000 UNIT/ML VIAL (Retacrit) SUBCUTANEO SCH (09:00)
[2024-07-19] MEDS ORDERED: SOD FERRIC GLUC COMPLX/SUCROSE 125 MG in 0.9 % SODIUM CHLORIDE 100 ML IV SCH (09:00)
[2024-07-19] MEDS ORDERED: HEPARIN SODIUM,PORCINE 5,000 UNITS/ML VIAL ONE (20:02)
[2024-07-20 04:00] VITALS: BP 127/59; O2SAT 100
[2024-07-20 06:35] LABS: BASO % 0.4 % (0.1-1.2); EOS # 0.12 (0.04-0.54); EOS % 2.1 % (0.7-7.0); HEMATOCRIT 27.9 % (34.1-44.9); LYMPH # 0.98 (1.18-3.74); LYMPH % 17.2 % (19.3-53.1); MEAN CORPUSCULAR HEMOGLOBIN 26.9 pg (25.6-32.2); MONO # 0.68 (0.24-0.82); MONO % 11.9 % (4.7-12.5); NEUT % 68.2 % (34.0-71.1); PLATELET COUNT 253 K/uL (163-369); RED BLOOD COUNT 3.34 M/uL (3.93-5.22); RED CELL DISTRIBUTION WIDTH 12.7 % (11.6-14.4)
[2024-07-20 07:12] LABS: INR 1.03; PARTIAL THROMBOPLASTIN TIME 29.1 SECONDS (22.0-34.0); PROTHROMBIN TIME 11.2 SECONDS (9.0-11.5)
[2024-07-20 07:18] VITALS: BP 122/63; O2SAT 99
[2024-07-20 07:21] VITALS: BP 126/55; O2SAT 100
[2024-07-20 07:39] LABS: ALBUMIN 1.7 gm/dL (3.4-5.0); BILIRUBIN TOTAL 0.42 mg/dL (0.3-1.2); CALCIUM 8.6 mg/dL (8.5-10.1); CREATININE SERUM 0.44 mg/dL (0.55-1.02); GFR 136.23; GLOBULINA 4.4 G/DL (2.4-3.5); POTASSIUM 3.33 mEq/L (3.5-5.1); TOTAL PROTEIN 6.1 gm/dL (6.4-8.2)
[2024-07-20 07:50] LABS: ABG PO2 140.2 mmHg (80-100); ABG pCO2 44.8 mmHg (35-45); BASE EXCESS 8.8 mmol/l; BICARBONATE 33.3 mmol/l (23-25); SaO2 99.4 %; Tco2 34.7 mmol/l
[2024-07-20] MEDS ORDERED: DIPHENHYDRAMINE HCL 50 MG/ML VIAL 1ML IV SCH (09:00)
[2024-07-20] MEDS ORDERED: METHYLPREDNISOLONE SOD SUCC 40 MG VIAL IV SCH (09:00)
[2024-07-20] MEDS ORDERED: CALCIUM GLUCONATE 100 MG/ML VIAL IV SCH (09:00)
[2024-07-20 09:29] LABS: o2 35 %; puncture site RADIAL RIGHT
[2024-07-20 09:30] LABS: allen test SATISFACTORY; mode MECHANI VENTILATOR
[2024-07-20] MEDS ORDERED: POTASSIUM CHLORIDE 20MEQ/100ML H2O PB IV NR (12:00)
[2024-07-20 12:02] VITALS: BP 138/61; O2SAT 100
[2024-07-20] MEDS ORDERED: ALBUMIN HUMAN 5% 0.05GM/ML (250ML) VIAL IV SCH (13:00)
[2024-07-20 16:00] VITALS: BP 127/47; O2SAT 100
[2024-07-20] MEDS ORDERED: HEPARIN SODIUM,PORCINE 5,000 UNITS/ML VIAL ONE (18:12)
[2024-07-20 20:00] VITALS: BP 121/58; O2SAT 100
[2024-07-20] MEDS ORDERED: DEXTROSE 50 % IN WATER 0.5 G/ML VIAL IV PRN (21:15)
[2024-07-20] MEDS ORDERED: INSULIN LISPRO 1,000 UNIT/10 ML UNITS SUBCUTANEO PRN (21:15)
[2024-07-20] MEDS ORDERED: INSULIN LISPRO 1,000 UNIT/10 ML UNITS SUBCUTANEO ONE (21:57)
[2024-07-21] VITALS (7 sets, daily range): BP systolic 123–163; BP diastolic 47–61; O2SAT 100
[2024-07-21] MEDS ORDERED: INSULIN LISPRO 1,000 UNIT/10 ML UNITS SUBCUTANEO ONE (00:32)
[2024-07-21 06:30] LABS: ABG PH 7.419 (7.35-7.45); ABG pCO2 45.9 mmHg (35-45)
[2024-07-21 06:31] LABS: BASE EXCESS 3.8 mmol/l; SaO2 99.4 %; Tco2 30.4 mmol/l; o2 35 %
[2024-07-21 06:32] LABS: allen test SATISFACTORY; mode MECHANI VENTILATOR; puncture site RADIAL RIGHT
[2024-07-21 06:34] LABS: ABG PO2 158.3 mmHg (80-100)
[2024-07-21 08:03] LABS: BASO % 0.2 % (0.1-1.2); HEMATOCRIT 34.4 % (34.1-44.9); LYMPH # 1.67 (1.18-3.74); LYMPH % 13.6 % (19.3-53.1); MEAN CORPUSCULAR HEMOGLOBIN 27.2 pg (25.6-32.2); NEUT # 9.43 (1.56-6.13); NEUT % 76.6 % (34.0-71.1); PLATELET COUNT 339 K/uL (163-369); RED BLOOD COUNT 4.05 M/uL (3.93-5.22)
[2024-07-21 08:05] LABS: INR 1.1; PARTIAL THROMBOPLASTIN TIME 33.9 SECONDS (22.0-34.0); PROTHROMBIN TIME 11.9 SECONDS (9.0-11.5)
[2024-07-21 08:24] LABS: ALBUMIN 3.8 gm/dL (3.4-5.0); BILIRUBIN TOTAL 0.76 mg/dL (0.3-1.2); CALCIUM 9.6 mg/dL (8.5-10.1); CREATININE SERUM 0.52 mg/dL (0.55-1.02); GFR 112.34; GLOBULINA 2.6 G/DL (2.4-3.5); MAGNESIUM 1.9 mg/dL (1.8-2.4); POTASSIUM 4.37 mEq/L (3.5-5.1); TOTAL PROTEIN 6.4 gm/dL (6.4-8.2)
[2024-07-22 04:00] VITALS: BP 148/46; O2SAT 100
[2024-07-22 05:13] LABS: ABG PH 7.458 (7.35-7.45); ABG PO2 161.5 mmHg (80-100); ABG pCO2 45.9 mmHg (35-45); BASE EXCESS 6.8 mmol/l; BICARBONATE 31.8 mmol/l (23-25); SaO2 99.5 %; Tco2 33.2 mmol/l
[2024-07-22 05:14] LABS: allen test SATISFACTORY; mode MECHANI VENTILATOR; o2 35 %; puncture site RADIAL RIGHT
[2024-07-22 07:16] LABS: BASO % 0.3 % (0.1-1.2); EOS # 0.08 (0.04-0.54); EOS % 0.9 % (0.7-7.0); HEMATOCRIT 29.3 % (34.1-44.9); HEMOGLOBIN 9.5 g/dL (11.2-15.7); LYMPH # 1.33 (1.18-3.74); LYMPH % 15.4 % (19.3-53.1); MEAN CORPUSCULAR HEMOGLOBIN 26.8 pg (25.6-32.2); MONO # 0.88 (0.24-0.82); MONO % 10.2 % (4.7-12.5); NEUT # 6.22 (1.56-6.13); PLATELET COUNT 244 K/uL (163-369); RED BLOOD COUNT 3.54 M/uL (3.93-5.22); RED CELL DISTRIBUTION WIDTH 13.1 % (11.6-14.4)
[2024-07-22 07:30] VITALS: BP 116/48; O2SAT 100
[2024-07-22 07:36] LABS: ALBUMIN 2.8 gm/dL (3.4-5.0); BILIRUBIN TOTAL 0.49 mg/dL (0.3-1.2); CALCIUM 9.2 mg/dL (8.5-10.1); CREATININE SERUM 0.5 mg/dL (0.55-1.02); GFR 117.54; GLOBULINA 2.8 G/DL (2.4-3.5); INR 1.03; MAGNESIUM 1.8 mg/dL (1.8-2.4); PARTIAL THROMBOPLASTIN TIME 28.6 SECONDS (22.0-34.0); POTASSIUM 3.11 mEq/L (3.5-5.1); PROTHROMBIN TIME 11.2 SECONDS (9.0-11.5); TOTAL PROTEIN 5.6 gm/dL (6.4-8.2)
[2024-07-22] MEDS ORDERED: HEPARIN SODIUM,PORCINE 5,000 UNITS/ML VIAL ONE (10:26)
[2024-07-22 12:00] VITALS: BP 132/40; O2SAT 100
[2024-07-22 15:10] VITALS: BP 129/74; O2SAT 100
[2024-07-22 20:05] VITALS: O2SAT 100
[2024-07-22 23:40] VITALS: BP 132/55; O2SAT 100
[2024-07-23 04:00] VITALS: BP 120/44; O2SAT 100
[2024-07-23 04:50] LABS: ABG PH 7.407 (7.35-7.45); ABG PO2 129.6 mmHg (80-100); ABG pCO2 42.9 mmHg (35-45); BASE EXCESS 1.5 mmol/l; BICARBONATE 26.4 mmol/l (23-25); SaO2 98.9 %; Tco2 27.7 mmol/l
[2024-07-23 06:23] LABS: BASO % 0.2 % (0.1-1.2); EOS # 0.11 (0.04-0.54); EOS % 1.2 % (0.7-7.0); HEMATOCRIT 27.3 % (34.1-44.9); LYMPH # 1.08 (1.18-3.74); LYMPH % 11.8 % (19.3-53.1); MEAN CORPUSCULAR HEMOGLOBIN 27.5 pg (25.6-32.2); MONO # 1.05 (0.24-0.82); MONO % 11.5 % (4.7-12.5); NEUT # 6.78 (1.56-6.13); NEUT % 74.3 % (34.0-71.1); PLATELET COUNT 205 K/uL (163-369); RED BLOOD COUNT 3.24 M/uL (3.93-5.22); RED CELL DISTRIBUTION WIDTH 13.5 % (11.6-14.4)
[2024-07-23 06:35] LABS: HEMOGLOBIN 8.9 g/dL (11.2-15.7)
[2024-07-23 06:45] LABS: INR 1.09; PARTIAL THROMBOPLASTIN TIME 30.7 SECONDS (22.0-34.0); PROTHROMBIN TIME 11.8 SECONDS (9.0-11.5)
[2024-07-23 07:29] VITALS: BP 131/44; O2SAT 100
[2024-07-23 08:23] LABS: ALBUMIN 3.3 gm/dL (3.4-5.0); BILIRUBIN TOTAL 0.39 mg/dL (0.3-1.2); CALCIUM 9.1 mg/dL (8.5-10.1); CREATININE SERUM 0.52 mg/dL (0.55-1.02); GFR 112.34; GLOBULINA 1.8 G/DL (2.4-3.5); MAGNESIUM 1.9 mg/dL (1.8-2.4); POTASSIUM 3.3 mEq/L (3.5-5.1); TOTAL PROTEIN 5.1 gm/dL (6.4-8.2)
[2024-07-23 12:00] VITALS: BP 140/50; O2SAT 100
[2024-07-23 15:12] VITALS: BP 111/76; O2SAT 100
[2024-07-23] MEDS ORDERED: FUROsemide 20 MG/2 ML VIAL IV SCH (18:45)
[2024-07-23 19:29] LABS: allen test SATISFACTORY; mode MECHANI VENTILATOR; o2 35 %; puncture site RADIAL RIGHT
[2024-07-23 20:50] VITALS: BP 118/47; O2SAT 100
[2024-07-23 23:50] VITALS: BP 107/40; O2SAT 100
[2024-07-24 04:11] VITALS: BP 119/50; O2SAT 100
[2024-07-24 07:21] VITALS: BP 125/54; O2SAT 98
[2024-07-24 11:19] LABS: BASO % 0.5 % (0.1-1.2); EOS # 0.18 (0.04-0.54); EOS % 2.3 % (0.7-7.0); HEMATOCRIT 40.9 % (34.1-44.9); LYMPH # 0.95 (1.18-3.74); LYMPH % 12.2 % (19.3-53.1); MEAN CORPUSCULAR HEMOGLOBIN 28.4 pg (25.6-32.2); MONO # 0.58 (0.24-0.82); MONO % 7.4 % (4.7-12.5); NEUT # 5.95 (1.56-6.13); NEUT % 76.2 % (34.0-71.1); PLATELET COUNT 204 K/uL (163-369); RED BLOOD COUNT 4.83 M/uL (3.93-5.22); RED CELL DISTRIBUTION WIDTH 13.5 % (11.6-14.4)
[2024-07-24 11:36] LABS: INR 1.07; PARTIAL THROMBOPLASTIN TIME 28.9 SECONDS (22.0-34.0); PROTHROMBIN TIME 11.6 SECONDS (9.0-11.5)
[2024-07-24 11:43] LABS: HEMOGLOBIN 13.7 g/dL (11.2-15.7)
[2024-07-24 11:48] LABS: ALBUMIN 3.4 gm/dL (3.4-5.0); BILIRUBIN TOTAL 0.96 mg/dL (0.3-1.2); CALCIUM 9.6 mg/dL (8.5-10.1); CREATININE SERUM 0.58 mg/dL (0.55-1.02); GFR 99.04; GLOBULINA 2.3 G/DL (2.4-3.5); MAGNESIUM 1.7 mg/dL (1.8-2.4); TOTAL PROTEIN 5.7 gm/dL (6.4-8.2)
[2024-07-24 11:51] LABS: POTASSIUM 2.85 mEq/L (3.5-5.1)
[2024-07-24 11:57] VITALS: BP 134/47; O2SAT 100
[2024-07-24] MEDS ORDERED: POTASSIUM CHLORIDE 20MEQ/100ML H2O PB IV NR (12:00)
[2024-07-24] MEDS ORDERED: HEPARIN SODIUM,PORCINE 5,000 UNITS/ML VIAL ONE (13:56)
[2024-07-24 15:08] VITALS: BP 125/47; O2SAT 100
[2024-07-24] MEDS ORDERED: POTASSIUM CHLORIDE IN WATER 40 MEQ/100 ML PIGGYBAG IV SCH (18:00)
[2024-07-24 20:58] VITALS: BP 126/49; O2SAT 100
[2024-07-24] MEDS ORDERED: POTASSIUM CHLORIDE 10 MEQ CAPSULE PO SCH (21:00)
[2024-07-24 23:38] VITALS: BP 123/54; O2SAT 100
[2024-07-25 04:00] VITALS: BP 127/51; O2SAT 100
[2024-07-25 06:25] LABS: ABG PH 7.422 (7.35-7.45); ABG PO2 135.3 mmHg (80-100); ABG pCO2 38.6 mmHg (35-45); BASE EXCESS 0.3 mmol/l; BICARBONATE 24.5 mmol/l (23-25); SaO2 99.1 %; Tco2 25.7 mmol/l
[2024-07-25 06:45] LABS: allen test NO SATISFACTORY; mode MECHANI VENTILATOR; o2 35 %; puncture site RADIAL LEFT
[2024-07-25 07:51] VITALS: BP 130/59; O2SAT 100
[2024-07-25] MEDS ORDERED: INSULIN NPH HUMAN ISOPHANE 1,000 UNITS/10 ML UNITS SUBCUTANEO SCH (09:00)
[2024-07-25 12:00] VITALS: O2SAT 99
[2024-07-25 16:03] VITALS: BP 137/58; O2SAT 100
[2024-07-25 20:00] VITALS: BP 142/50; O2SAT 100
[2024-07-25 23:34] VITALS: BP 150/68; O2SAT 100
[2024-07-26 04:00] VITALS: BP 113/45; O2SAT 100
[2024-07-26 06:28] LABS: ABG PH 7.446 (7.35-7.45); ABG PO2 186.3 mmHg (80-100); BASE EXCESS 4.2 mmol/l; BICARBONATE 28.8 mmol/l (23-25); SaO2 99.7 %; Tco2 30.1 mmol/l
[2024-07-26 06:52] LABS: ABG pCO2 42.7 mmHg (35-45); allen test SATISFACTORY; mode MECHANI VENTILATOR; o2 35 %; puncture site RADIAL LEFT
[2024-07-26 07:13] LABS: INR 1.04; PARTIAL THROMBOPLASTIN TIME 28.5 SECONDS (22.0-34.0); PROTHROMBIN TIME 11.3 SECONDS (9.0-11.5)
[2024-07-26 07:18] LABS: BASO % 0.5 % (0.1-1.2); EOS % 1.7 % (0.7-7.0); HEMATOCRIT 41.1 % (34.1-44.9); HEMOGLOBIN 13.7 g/dL (11.2-15.7); LYMPH # 1.67 (1.18-3.74); MEAN CORPUSCULAR HEMOGLOBIN 28.8 pg (25.6-32.2); MONO # 1.07 (0.24-0.82); NEUT # 8.66 (1.56-6.13); NEUT % 72.9 % (34.0-71.1); PLATELET COUNT 158 K/uL (163-369); RED BLOOD COUNT 4.75 M/uL (3.93-5.22); RED CELL DISTRIBUTION WIDTH 15.4 % (11.6-14.4)
[2024-07-26 07:34] LABS: ALBUMIN 3.4 gm/dL (3.4-5.0); BILIRUBIN TOTAL 0.57 mg/dL (0.3-1.2); CALCIUM 10.1 mg/dL (8.5-10.1); CREATININE SERUM 0.44 mg/dL (0.55-1.02); GFR 136.23; GLOBULINA 2.2 G/DL (2.4-3.5); MAGNESIUM 1.9 mg/dL (1.8-2.4); POTASSIUM 4.78 mEq/L (3.5-5.1); TOTAL PROTEIN 5.6 gm/dL (6.4-8.2)
[2024-07-26 07:35] VITALS: BP 135/64; O2SAT 99
[2024-07-26] MEDS ORDERED: HEPARIN SODIUM,PORCINE 5,000 UNITS/ML VIAL ONE (08:19)
[2024-07-26 12:00] VITALS: BP 166/66; O2SAT 100
[2024-07-26 15:25] VITALS: BP 135/58; O2SAT 100
[2024-07-26 20:00] VITALS: BP 146/74; O2SAT 100
[2024-07-26 23:09] VITALS: BP 140/44; O2SAT 99
[2024-07-27 04:00] VITALS: BP 126/49; O2SAT 100
[2024-07-27 06:45] LABS: BASO % 0.6 % (0.1-1.2); EOS # 0.13 (0.04-0.54); EOS % 0.7 % (0.7-7.0); HEMATOCRIT 44.7 % (34.1-44.9); HEMOGLOBIN 14.7 g/dL (11.2-15.7); LYMPH # 2.23 (1.18-3.74); MEAN CORPUSCULAR HEMOGLOBIN 27.9 pg (25.6-32.2); MONO # 1.47 (0.24-0.82); MONO % 7.9 % (4.7-12.5); NEUT # 14.33 (1.56-6.13); NEUT % 76.8 % (34.0-71.1); PLATELET COUNT 193 K/uL (163-369); RED BLOOD COUNT 5.26 M/uL (3.93-5.22)
[2024-07-27 07:15] LABS: INR 1.09; PARTIAL THROMBOPLASTIN TIME 29.9 SECONDS (22.0-34.0); PROTHROMBIN TIME 11.8 SECONDS (9.0-11.5)
[2024-07-27 07:22] VITALS: BP 158/87; O2SAT 98
[2024-07-27 07:23] LABS: BILIRUBIN TOTAL 0.66 mg/dL (0.3-1.2); CALCIUM 9.7 mg/dL (8.5-10.1); CREATININE SERUM 0.58 mg/dL (0.55-1.02); GFR 99.04; GLOBULINA 1.6 G/DL (2.4-3.5); POTASSIUM 4.03 mEq/L (3.5-5.1); TOTAL PROTEIN 5.6 gm/dL (6.4-8.2)
[2024-07-27] MEDS ORDERED: INSULIN NPH HUMAN ISOPHANE 1,000 UNITS/10 ML UNITS SUBCUTANEO SCH (09:00)
[2024-07-27 12:27] VITALS: BP 141/68; O2SAT 100
[2024-07-27 15:04] VITALS: BP 137/61; O2SAT 100
[2024-07-27 20:00] VITALS: BP 151/57; O2SAT 100
[2024-07-27 22:32] LABS: ABG PH 7.424 (7.35-7.45); ABG pCO2 40.5 mmHg (35-45)
[2024-07-27 22:33] LABS: BASE EXCESS 1.5 mmol/l; BICARBONATE 25.9 mmol/l (23-25); SaO2 99.4 %; Tco2 27.2 mmol/l; allen test SATISFACTORY; mode MECHANI VENTILATOR; o2 35 %; puncture site RADIAL RIGHT
[2024-07-27 22:34] LABS: ABG PO2 158.7 mmHg (80-100)
[2024-07-27 23:49] VITALS: BP 121/51; O2SAT 100
[2024-07-28 05:04] VITALS: BP 142/48; O2SAT 100
[2024-07-28 07:12] VITALS: BP 137/56; O2SAT 100
[2024-07-28 07:36] LABS: BASO % 0.3 % (0.1-1.2); EOS # 0.06 (0.04-0.54); EOS % 0.3 % (0.7-7.0); HEMATOCRIT 40.1 % (34.1-44.9); HEMOGLOBIN 13.1 g/dL (11.2-15.7); LYMPH # 1.56 (1.18-3.74); MEAN CORPUSCULAR HEMOGLOBIN 28.1 pg (25.6-32.2); MONO # 1.03 (0.24-0.82); MONO % 4.6 % (4.7-12.5); NEUT # 19.27 (1.56-6.13); NEUT % 86.4 % (34.0-71.1); PLATELET COUNT 139 K/uL (163-369); RED BLOOD COUNT 4.66 M/uL (3.93-5.22); RED CELL DISTRIBUTION WIDTH 17.4 % (11.6-14.4)
[2024-07-28 07:51] LABS: ALBUMIN 3.5 gm/dL (3.4-5.0); BILIRUBIN TOTAL 0.67 mg/dL (0.3-1.2); CALCIUM 9.3 mg/dL (8.5-10.1); CREATININE SERUM 0.43 mg/dL (0.55-1.02); GFR 139.89; MAGNESIUM 1.9 mg/dL (1.8-2.4); POTASSIUM 3.93 mEq/L (3.5-5.1); TOTAL PROTEIN 5.5 gm/dL (6.4-8.2)
[2024-07-28 07:59] LABS: INR 1.01; PARTIAL THROMBOPLASTIN TIME 27.8 SECONDS (22.0-34.0)
[2024-07-28] MEDS ORDERED: HEPARIN SODIUM,PORCINE 5,000 UNITS/ML VIAL ONE (10:53)
[2024-07-28 12:00] VITALS: BP 113/63; O2SAT 100
[2024-07-28 15:39] VITALS: BP 113/63; BP 119/58; O2SAT 100
[2024-07-28 20:00] VITALS: BP 156/65; O2SAT 100
[2024-07-28 23:57] VITALS: BP 151/65; O2SAT 100
[2024-07-29 04:00] VITALS: BP 114/58; O2SAT 100
[2024-07-29 06:54] LABS: ABG PH 7.326 (7.35-7.45); ABG PO2 178.3 mmHg (80-100); ABG pCO2 40.1 mmHg (35-45); BASE EXCESS -5.2 mmol/l; BICARBONATE 20.4 mmol/l (23-25); SaO2 99.4 %; Tco2 21.7 mmol/l
[2024-07-29 07:00] LABS: o2 35 %
[2024-07-29 07:01] LABS: allen test SATISFACTORY; mode MECHANI VENTILATOR; puncture site RADIAL LEFT
[2024-07-29 07:27] VITALS: BP 145/53; O2SAT 100
[2024-07-29 12:24] VITALS: BP 154/59; O2SAT 99
[2024-07-29 15:34] VITALS: BP 168/68; O2SAT 100
[2024-07-29 20:02] VITALS: BP 161/59; O2SAT 100
[2024-07-29] MEDS ORDERED: 0.9 % SODIUM CHLORIDE 10 ML VIAL IJ ONE ×2 (20:08→20:09)
[2024-07-29 23:10] VITALS: BP 165/66; O2SAT 100
[2024-07-30] VITALS (7 sets, daily range): BP systolic 122–144; BP diastolic 50–61; O2SAT 98–100
[2024-07-30] MEDS ORDERED: HALOPERIDOL LACTATE 5 MG/ML AMPUL IM ONE (02:30)
[2024-07-30 07:03] LABS: BASO % 0.2 % (0.1-1.2); EOS # 0.03 (0.04-0.54); EOS % 0.2 % (0.7-7.0); HEMATOCRIT 40.3 % (34.1-44.9); HEMOGLOBIN 13.2 g/dL (11.2-15.7); LYMPH # 0.95 (1.18-3.74); LYMPH % 6.5 % (19.3-53.1); MEAN CORPUSCULAR HEMOGLOBIN 28.3 pg (25.6-32.2); MONO # 0.84 (0.24-0.82); MONO % 5.8 % (4.7-12.5); NEUT # 12.53 (1.56-6.13); NEUT % 86.3 % (34.0-71.1); PLATELET COUNT 131 K/uL (163-369); RED BLOOD COUNT 4.66 M/uL (3.93-5.22); RED CELL DISTRIBUTION WIDTH 17.7 % (11.6-14.4)
[2024-07-30 12:22] LABS: CALCIUM 8.8 mg/dL (8.5-10.1); CREATININE SERUM 0.53 mg/dL (0.55-1.02); GFR 109.9; MAGNESIUM 1.7 mg/dL (1.8-2.4); PHOSPHOROUS 3.2 mg/dL (2.5-4.9); POTASSIUM 3.2 mEq/L (3.5-5.1)
[2024-07-30] MEDS ORDERED: PREDNISONE 20 MG TABLET PO SCH (17:31)
[2024-07-31 07:16] VITALS: BP 133/57; O2SAT 96
[2024-07-31] MEDS ORDERED: POTASSIUM CHLORIDE 20MEQ/100ML H2O PB IV NR (08:00)
[2024-07-31 12:00] VITALS: BP 128/67; O2SAT 99
[2024-07-31 15:25] VITALS: BP 144/56; O2SAT 99
[2024-07-31 20:00] VITALS: BP 127/65; O2SAT 98
[2024-08-01] VITALS: BP 153/92; O2SAT 100
[2024-08-01 07:11] LABS: ALBUMIN 3.2 gm/dL (3.4-5.0); BILIRUBIN TOTAL 0.63 mg/dL (0.3-1.2); CALCIUM 8.9 mg/dL (8.5-10.1); CREATININE SERUM 0.61 mg/dL (0.55-1.02); GFR 93.44; GLOBULINA 2.3 G/DL (2.4-3.5); POTASSIUM 3.33 mEq/L (3.5-5.1); TOTAL PROTEIN 5.5 gm/dL (6.4-8.2)
[2024-08-01 07:27] VITALS: BP 127/73; O2SAT 100
[2024-08-01] MEDS ORDERED: POTASSIUM CHLORIDE 20MEQ/100ML H2O PB IV NR (08:00)
[2024-08-01 13:00] VITALS: BP 144/64; O2SAT 100
[2024-08-01 15:50] VITALS: BP 131/58; O2SAT 100
[2024-08-01 20:00] VITALS: BP 126/57; O2SAT 99
[2024-08-01 23:19] VITALS: BP 117/41; O2SAT 100
[2024-08-02 04:00] VITALS: BP 139/48; O2SAT 100
[2024-08-02 06:45] LABS: BASO % 0.1 % (0.1-1.2); EOS # 0.03 (0.04-0.54); EOS % 0.2 % (0.7-7.0); HEMATOCRIT 40.5 % (34.1-44.9); HEMOGLOBIN 13.4 g/dL (11.2-15.7); LYMPH # 1.11 (1.18-3.74); LYMPH % 7.1 % (19.3-53.1); MEAN CORPUSCULAR HEMOGLOBIN 28.6 pg (25.6-32.2); MONO # 1.04 (0.24-0.82); MONO % 6.7 % (4.7-12.5); NEUT # 13.28 (1.56-6.13); NEUT % 85.4 % (34.0-71.1); PLATELET COUNT 201 K/uL (163-369); RED BLOOD COUNT 4.69 M/uL (3.93-5.22); RED CELL DISTRIBUTION WIDTH 17.4 % (11.6-14.4)
[2024-08-02 07:08] VITALS: BP 119/59; O2SAT 100
[2024-08-02] MEDS ORDERED: POTASSIUM CHLORIDE 20MEQ/100ML H2O PB IV NR (09:00)
[2024-08-02 12:00] VITALS: O2SAT 100
[2024-08-02 15:38] VITALS: BP 137/66; O2SAT 100
[2024-08-02 21:14] VITALS: O2SAT 100
[2024-08-03] VITALS (7 sets, daily range): BP systolic 102–135; BP diastolic 58–65; O2SAT 98–100
[2024-08-03] MEDS ORDERED: INSULIN NPH HUMAN ISOPHANE 1,000 UNITS/10 ML UNITS SUBCUTANEO SCH (09:00)
[2024-08-03 15:41] LABS: EOS # 0.01 (0.04-0.54); EOS % 0.1 % (0.7-7.0); HEMATOCRIT 40.6 % (34.1-44.9); LYMPH # 0.25 (1.18-3.74); LYMPH % 1.7 % (19.3-53.1); MEAN CORPUSCULAR HEMOGLOBIN 28.6 pg (25.6-32.2); MONO % 1.4 % (4.7-12.5); NEUT # 13.95 (1.56-6.13); NEUT % 96.5 % (34.0-71.1); PLATELET COUNT 159 K/uL (163-369); RED BLOOD COUNT 4.55 M/uL (3.93-5.22); RED CELL DISTRIBUTION WIDTH 17.6 % (11.6-14.4)
[2024-08-03 16:10] LABS: ALBUMIN 2.6 gm/dL (3.4-5.0); BILIRUBIN TOTAL 0.71 mg/dL (0.3-1.2); CALCIUM 8.3 mg/dL (8.5-10.1); CREATININE SERUM 0.52 mg/dL (0.55-1.02); GFR 112.34; GLOBULINA 2.7 G/DL (2.4-3.5); POTASSIUM 5.74 mEq/L (3.5-5.1); TOTAL PROTEIN 5.3 gm/dL (6.4-8.2)
[2024-08-04 01:14] VITALS: BP 116/59; O2SAT 96
[2024-08-04 06:00] VITALS: O2SAT 90
[2024-08-04 08:35] VITALS: BP 119/69; O2SAT 100
[2024-08-04 13:00] VITALS: O2SAT 98
[2024-08-04 16:00] VITALS: BP 121/71; O2SAT 100
[2024-08-04 19:55] VITALS: O2SAT 97
[2024-08-05 01:07] VITALS: BP 109/63; O2SAT 97
[2024-08-05 01:38] VITALS: O2SAT 90
[2024-08-05 05:48] VITALS: O2SAT 90
[2024-08-05 08:22] VITALS: BP 142/77; O2SAT 100
[2024-08-05] MEDS ORDERED: INSULIN NPH HUMAN ISOPHANE 1,000 UNITS/10 ML UNITS SUBCUTANEO SCH ×2 (09:00→13:00)
[2024-08-05 16:00] VITALS: BP 133/69; O2SAT 99
[2024-08-05 23:00] VITALS: O2SAT 94
[2024-08-06] VITALS (9 sets, daily range): BP systolic 104–125; BP diastolic 53–61; O2SAT 84–100
[2024-08-06 08:40] LABS: BASO % 0.1 % (0.1-1.2); EOS # 0.04 (0.04-0.54); EOS % 0.4 % (0.7-7.0); HEMOGLOBIN 12.9 g/dL (11.2-15.7); LYMPH # 1.05 (1.18-3.74); LYMPH % 9.6 % (19.3-53.1); MEAN CORPUSCULAR HEMOGLOBIN 28.7 pg (25.6-32.2); MONO # 0.67 (0.24-0.82); MONO % 6.1 % (4.7-12.5); NEUT # 9.11 (1.56-6.13); NEUT % 83.3 % (34.0-71.1); PLATELET COUNT 186 K/uL (163-369); RED CELL DISTRIBUTION WIDTH 16.7 % (11.6-14.4)
[2024-08-06 08:52] LABS: ALBUMIN 2.8 gm/dL (3.4-5.0); BILIRUBIN TOTAL 0.59 mg/dL (0.3-1.2); CALCIUM 9.4 mg/dL (8.5-10.1); CREATININE SERUM 0.51 mg/dL (0.55-1.02); GFR 114.89; GLOBULINA 2.8 G/DL (2.4-3.5); POTASSIUM 3.98 mEq/L (3.5-5.1); TOTAL PROTEIN 5.6 gm/dL (6.4-8.2)
[2024-08-06] MEDS ORDERED: INSULIN NPH HUM/REG INSULIN HM 1,000 UNIT/10 ML UNITS SUBCUTANEO SCH (09:00)
[2024-08-06 19:27] LABS: ABG PH 7.458 (7.35-7.45); ABG PO2 93.5 mmHg (80-100); BASE EXCESS 9.5 mmol/l; BICARBONATE 35.2 mmol/l (23-25); SaO2 97.9 %; Tco2 36.7 mmol/l; allen test SATISFACTORY; mode MECHANI VENTILATOR; o2 40 %; puncture site RADIAL LEFT
[2024-08-06 19:28] LABS: ABG pCO2 50.9 mmHg (35-45)
[2024-08-07] VITALS (9 sets, daily range): BP systolic 112–127; BP diastolic 60–68; O2SAT 98–100
[2024-08-07] MEDS ORDERED: INSULIN NPH HUM/REG INSULIN HM 1,000 UNIT/10 ML UNITS SUBCUTANEO SCH (13:00)
[2024-08-07] MEDS ORDERED: [UNRECOGNIZED DRUG - OTHER] IM NR (13:30)
[2024-08-07] MEDS ORDERED: [UNRECOGNIZED DRUG - OTHER] IM NR (13:30)
[2024-08-07 19:50] LABS: HEMATOCRIT 38.6 % (34.1-44.9); HEMOGLOBIN 12.6 g/dL (11.2-15.7); LYMPH # 0.19 (1.18-3.74); LYMPH % 1.9 % (19.3-53.1); MEAN CORPUSCULAR HEMOGLOBIN 28.5 pg (25.6-32.2); MONO # 0.24 (0.24-0.82); MONO % 2.4 % (4.7-12.5); NEUT # 9.71 (1.56-6.13); NEUT % 95.1 % (34.0-71.1); PLATELET COUNT 174 K/uL (163-369); RED BLOOD COUNT 4.42 M/uL (3.93-5.22); RED CELL DISTRIBUTION WIDTH 16.4 % (11.6-14.4)
[2024-08-07 20:14] LABS: ALBUMIN 2.8 gm/dL (3.4-5.0); BILIRUBIN TOTAL 0.5 mg/dL (0.3-1.2); CALCIUM 9.1 mg/dL (8.5-10.1); CREATININE SERUM 0.82 mg/dL (0.55-1.02); GFR 66.42; GLOBULINA 3.2 G/DL (2.4-3.5); POTASSIUM 3.67 mEq/L (3.5-5.1)
[2024-08-08] VITALS (9 sets, daily range): BP systolic 113–131; BP diastolic 50–61; O2SAT 96–100
[2024-08-08] MEDS ORDERED: LACTOBACILLUS ACIDOPHILUS 1 CAP CAP PO SCH (13:00)
[2024-08-09] VITALS: O2SAT 98
[2024-08-09 02:30] VITALS: BP 144/69; O2SAT 98
[2024-08-09 05:39] VITALS: O2SAT 98
[2024-08-09 08:34] VITALS: O2SAT 96
[2024-08-09 08:35] VITALS: BP 90/50; O2SAT 99
[2024-08-09] MEDS ORDERED: INSULIN NPH HUM/REG INSULIN HM 1,000 UNIT/10 ML UNITS SUBCUTANEO SCH (09:00)
== END 2024-08-09 12:11 | disposition home or self-care (01) | DRG 4 ==
LOC: ER 18:48 → ICU 23:30 → ICU-2 23:30 → ICU 06-16 03:42 → SURH 08-02 19:20 → MEDJ 08-06 13:29
PROVIDERS: General Practice; Internal Medicine; Internal Medicine Critical Care Medicine; Internal Medicine Hematology & Oncology; Otolaryngology; Student in an Organized Health Care Education/Training Program; ADMIT Internal Medicine; ATTEND Internal Medicine
PROC: BW24ZZZ Computerized Tomography (CT Scan) of Chest and Abdomen (ICD-10-PCS; 2024-06-15)
PROC: 5A1945Z Respiratory Ventilation, 24-96 Consecutive Hours (ICD-10-PCS; 2024-06-16)
PROC: 0BH17EZ Insertion of Endotracheal Airway into Trachea, Via Natural or Artificial Opening (ICD-10-PCS; 2024-06-16)
PROC: 30233S1 Transfusion of Nonautologous Globulin into Peripheral Vein, Percutaneous Approach (ICD-10-PCS; 2024-06-16)
PROC: B24BZZZ Ultrasonography of Heart with Aorta (ICD-10-PCS; 2024-06-17)
PROC: 0DH67UZ Insertion of Feeding Device into Stomach, Via Natural or Artificial Opening (ICD-10-PCS; 2024-06-17)
PROC: 3E0F7GC Introduction of Other Therapeutic Substance into Respiratory Tract, Via Natural or Artificial Opening (ICD-10-PCS; 2024-06-17)
PROC: 0BH17EZ Insertion of Endotracheal Airway into Trachea, Via Natural or Artificial Opening (ICD-10-PCS; 2024-06-19)
PROC: 02HV33Z Insertion of Infusion Device into Superior Vena Cava, Percutaneous Approach (ICD-10-PCS; 2024-06-19)
PROC: 0BP1XDZ Removal of Intraluminal Device from Trachea, External Approach (ICD-10-PCS; 2024-06-19)
PROC: 5A1955Z Respiratory Ventilation, Greater than 96 Consecutive Hours (ICD-10-PCS; 2024-06-19)
PROC: XW0 New Technology, Anatomical Regions, Introduction (ICD-10-PCS; 2024-07-01)
PROC: 0BH17EZ Insertion of Endotracheal Airway into Trachea, Via Natural or Artificial Opening (ICD-10-PCS; 2024-07-11)
PROC: 5A1955Z Respiratory Ventilation, Greater than 96 Consecutive Hours (ICD-10-PCS; 2024-07-11)
PROC: 0BP1XDZ Removal of Intraluminal Device from Trachea, External Approach (ICD-10-PCS; 2024-07-11)
PROC: 8E0ZXY6 Isolation (ICD-10-PCS; 2024-07-12)
PROC: 0DH63UZ Insertion of Feeding Device into Stomach, Percutaneous Approach (ICD-10-PCS; 2024-07-16)
PROC: 0B110F4 Bypass Trachea to Cutaneous with Tracheostomy Device, Open Approach (ICD-10-PCS; principal; 2024-07-16 15:15)
PROC: 05HM33Z Insertion of Infusion Device into Right Internal Jugular Vein, Percutaneous Approach (ICD-10-PCS; 2024-07-19)
PROC: 30233N1 Transfusion of Nonautologous Red Blood Cells into Peripheral Vein, Percutaneous Approach (ICD-10-PCS; 2024-07-24)
PROC: 30233D1 Transfusion of Nonautologous Pathogen Reduced Cryoprecipitated Fibrinogen Complex into Peripheral Vein, Percutaneous Approach (ICD-10-PCS; 2024-07-28)
PROC: 4A12X4Z Monitoring of Cardiac Electrical Activity, External Approach (ICD-10-PCS; 2024-08-02)
DX: J96.10 Chronic respiratory failure, unspecified whether with hypoxia or hypercapnia (principal); T80.211A Bloodstream infection due to central venous catheter, initial encounter; A41.52 Sepsis due to Pseudomonas; G70.01 Myasthenia gravis with (acute) exacerbation; J69.0 Pneumonitis due to inhalation of food and vomit; R57.8 Other shock; A41.59 Other Gram-negative sepsis; I50.20 Unspecified systolic (congestive) heart failure; G12.22 Progressive bulbar palsy; D68.8 Other specified coagulation defects; R13.10 Dysphagia, unspecified; E11.65 Type 2 diabetes mellitus with hyperglycemia; Z79.4 Long term (current) use of insulin; I11.0 Hypertensive heart disease with heart failure; D69.6 Thrombocytopenia, unspecified; E87.6 Hypokalemia; I95.89 Other hypotension; G70.9 Myoneural disorder, unspecified; E86.0 Dehydration; B96.5 Pseudomonas (aeruginosa) (mallei) (pseudomallei) as the cause of diseases classified elsewhere; B95.7 Other staphylococcus as the cause of diseases classified elsewhere; B95.2 Enterococcus as the cause of diseases classified elsewhere; D63.8 Anemia in other chronic diseases classified elsewhere